=== PATIENT | female | born 2000 | race Hispanic/Latino ===

== ENCOUNTER 2020-01-13 11:31 | Outpatient (CLI) | payer OTHER, SELFPAY ==
--- NOTE | ~2020-01-13 | US_ITS ---
EXAMINATION: US OB <=14 wk fetus w TV DATE: 01/13/2020 12:30 INDICATION: Bleeding during first trimester TECHNIQUE: Real-time pelvic transabdominal and transvaginal ultrasound was performed. COMPARISON: None. FINDINGS: The uterus measures 7.7 x 5.2 x 3.7 cm. No intrauterine gestational sac is identified. The endometrial thickness measures 7 mm. The right ovary measures 1.3 x 1.4 x 1.8 cm. The left ovary steven ures 2.1 x 2.2 x 2.0 cm. There is no free fluid in the pelvis. IMPRESSION: 1. of unknown location. Although no intrauterine gestational sac is seen, this may be due t o early gestation. If the patient is clinically stable, recommend followup with serial beta-hCG and u ltrasound. Reviewed, dictated and finalized at location B. IMPRESSION: 1. of unknown location. Although no intrauterine gestational sac is s een, this may be due to early gestation. If the patient is clinically stable, r ecommend followup with serial beta-hCG and ultrasound.
== END 2020-01-13 11:32 | disposition home or self-care (01) ==
PROVIDERS: PCP Registered Nurse; Visit Provider Nurse Practitioner
DX: O26.859 Spotting complicating pregnancy, unspecified trimester (principal); Z3A.00 Weeks of gestation of pregnancy not specified
CPT/HCPCS: 76801; 76817

== ENCOUNTER 2020-01-17 07:52 | Outpatient (RCR) | payer OTHER, SELFPAY ==
[2020-01-17 08:40] LABS: Beta HCG Quantitative 125.17 mIU/ML
== END 2020-04-12 23:59 | disposition home or self-care (01) ==
LOC: ANHLAB 07:52
PROVIDERS: PCP Registered Nurse; Visit Provider Nurse Practitioner
DX: O26.851 Spotting complicating pregnancy, first trimester (principal); Z3A.00 Weeks of gestation of pregnancy not specified
CPT/HCPCS: 36415; 84702; 86900; 86901

== ENCOUNTER 2020-02-29 09:17 | Outpatient (RCR) | payer OTHER, SELFPAY ==
[2020-01-23 14:36] LABS: Beta HCG Quantitative 20.45 mIU/ML
[2020-02-02 18:04] LABS: Beta HCG Quantitative < 2.39 mIU/ML
== END 2020-04-22 23:59 | disposition home or self-care (01) ==
LOC: ANHLAB 09:17
PROVIDERS: PCP Registered Nurse; Visit Provider Nurse Practitioner
DX: O03.9 Complete or unspecified spontaneous abortion without complication (principal)
CPT/HCPCS: 36415; 84702

== ENCOUNTER 2020-03-13 15:37 | Outpatient (CLI) | payer OTHER, SELFPAY ==
--- NOTE | ~2020-03-13 | US_ITS ---
EXAMINATION: US OB <= 14 weeks fetus DATE: 03/13/2020 16:36 INDICATION: Encounter for screening. TECHNIQUE: Real-time transabdominal obstetric ultrasound. FINDINGS: Comparison to 01/13/2020 The uterus measures 10.5 x 5.1 x 6 cm. There is an intrauterine gestational sac, with pole iden tified. The crown rump length measures 1.78 cm, which correlates with a estimated gestational age of 8 weeks 2 days. heart tones are identified measuring 167 BPM. The ovaries are within normal limits. Right ovary measures 1.8 x 1.6 x 2.3 cm. Left ovary measures 1.9 x 1.2 x 1.6 cm. IMPRESSION: 1. SL IUP with an EGA of 8 weeks, 2 days (EDC by current ultrasound of 10/21/2020). Reviewed, dictated and finalized at location A. IMPRESSION: 1. SL IUP with an EGA of 8 weeks, 2 days (EDC by current ultrasound of 10/21/19).
== END 2020-03-13 15:38 | disposition home or self-care (01) ==
PROVIDERS: PCP Registered Nurse; Visit Provider Obstetrics & Gynecology Gynecology
DX: O26.21 Pregnancy care for patient with recurrent pregnancy loss, first trimester (principal); Z36.87 Encounter for antenatal screening for uncertain dates; Z3A.08 8 weeks gestation of pregnancy
CPT/HCPCS: 76801

== ENCOUNTER 2020-04-10 15:33 | Outpatient (CLI) | payer OTHER, SELFPAY ==
[2020-04-10 16:17] LABS: Basophils Percent Auto 0.2 % (0.2-1.2); Eosinophils Absolute Auto 0.4 K/mm3 (0-0.3); Eosinophils Percent Auto 4.1 % (0-4.4); Hematocrit 34.9 % (37.0-47.0); Hemoglobin 11.9 g/dL (12.0-15.0); Immature Granulocyte Absolute 0.03 K/mm3 (0.00-0.031); Immature Granulocyte Percent A 0.3 % (0-0.5); Lymphocytes Percent Auto 19.6 % (18.3-44.2); Mean Corpuscular HGB Conc 34.1 g/dl (32-36); Mean Corpuscular Hemoglobin 27.3 pg (26-34); Mean Platelet Volume 10.7 fl (7.4-10.4); Monocytes Absolute Auto 0.6 K/mm3 (0.1-0.6); Monocytes Percent Auto 7.1 % (2.6-8.5); Neutrophils Percent Auto 68.7 % (45.5-73.1); Platelet Count Result 330 k/mm3 (150-375); Red Blood Count 4.36 M/mm3 (4.2-5.4); White Blood Count 8.7 K/mm3 (4.5-10.0)
[2020-04-10 17:00] LABS: Rubella IgG Antibody 78.4 IU/ML
[2020-04-10 17:09] LABS: Hemoglobin A1C 5.3 % (<5.7)
[2020-04-10 17:16] LABS: HIV 1/2 Ab P24 Ag Result Negative (Negative); Hepatitis B Surface Anti Res Negative
[2020-04-10 18:02] LABS: Vitamin D 25 Hydroxy 27.5 ng/mL
[2020-04-11 07:49] LABS: Rapid Plasma Reagin Non-Reactive (NonReactive)
== END 2020-04-10 15:34 | disposition home or self-care (01) ==
PROVIDERS: PCP Registered Nurse; Visit Provider Obstetrics & Gynecology Gynecology
DX: Z36.9 Encounter for antenatal screening, unspecified (principal)
CPT/HCPCS: 36415; 82306; 83036; 85025; 85461; 86592; 86703; 86706; 86762; G0432

== ENCOUNTER 2020-05-16 15:41 | Emergency (ER) | payer OTHER, SELFPAY ==
[2020-05-16 15:45] VITALS: BP 138/64; PULSE 97; RESP 18; TEMP 36.8; O2SAT 97
--- NOTE | 2020-05-16 15:48 | ECG_ITS ---
Measurements Intervals [place] Rate: 103 P: -23 KS: 148 QRS: 6 QRSD: 86 T: -17 QT: 311 QTc: 407 Interpretive Statements SINUS TACHYCARDIA BORDERLINE ST-T WAVE ABNORMALITY- ANTEROLAT/INF LEADS BASELINE ARTIFACT- II, III, AVR, AVL, AVF, V1-V3 BORDERLINE ECG Electronically Signed On 05-16-2020 16:05:10 CDT by Cristi Leo D.O.
[2020-05-16 16:03] LABS: Basophils Percent Auto 0.2 % (0.2-1.2); Eosinophils Absolute Auto 0.3 K/mm3 (0-0.3); Eosinophils Percent Auto 2.8 % (0-4.4); Hematocrit 33.7 % (37.0-47.0); Hemoglobin 11.4 g/dL (12.0-15.0); Immature Granulocyte Absolute 0.04 K/mm3 (0.00-0.031); Immature Granulocyte Percent A 0.4 % (0-0.5); Lymphocytes Absolute Auto 1.84 K/mm3 (0.9-3.2); Lymphocytes Percent Auto 17.2 % (18.3-44.2); Mean Corpuscular HGB Conc 33.8 g/dl (32-36); Mean Corpuscular Hemoglobin 27.4 pg (26-34); Mean Platelet Volume 11.1 fl (7.4-10.4); Monocytes Absolute Auto 0.5 K/mm3 (0.1-0.6); Monocytes Percent Auto 4.6 % (2.6-8.5); Neutrophils Percent Auto 74.8 % (45.5-73.1); Platelet Count Result 285 k/mm3 (150-375); Red Blood Count 4.16 M/mm3 (4.2-5.4); Red Cell Distribution Width 13.1 % (11.5-14.5); White Blood Count 10.7 K/mm3 (4.5-10.0)
[2020-05-16 16:13] LABS: Prothrombin Time 12.8 Seconds (11.1-14.7)
[2020-05-16 16:14] LABS: Partial Thromboplastin Time 28.7 SECONDS (22.3-36.8)
[2020-05-16 16:19] LABS: Anion Gap 11.7 mmol/L (7-16); Blood Urea Nitrogen 7 mg/dL (7-17); Calcium 9.1 mg/dL (8.4-10.2); Carbon Dioxide 22 mmol/L (22-30); Chloride 106 mmol/L (98-107); Estimated CRCL calculation 193 ml/min; Estimated Glomerular Filt Rate > 60; Glucose 82 mg/dL (65-105); Potassium 3.7 mmol/L (3.4-5.0); Sodium 136 mmol/L (137-145)
--- NOTE | 2020-05-16 16:42 | ED.ARRPALP ---
HPI - Arrhythmia/Palpitations General Chief Complaint: Arrhythmia/Palpitations Stated Complaint: blood in emesis, rapid HR, 17 weeks preg Time Seen by Provider: 05/16/20 16:36 History of Present Illness HPI narrative: Patient presents with her boyfriend for throwing up with blood. She is 17 weeks . She has been vomiting for 3 days. This is her first . She has Reglan at home which has not had. She has a history of UTI. She has been going more frequently. And she had some blood in her vomit. She also complained to her doctor that her heart rate was too fast. She has no long-term medical problem. She has not had any surgeries. 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 complaint: rapid heart beat Duration: intermittent Severity: mild Associated symptoms: nausea and vomiting Related Data Home Medications Medication Instructions Recorded Confirmed No Home Medications 05/16/20 05/16/20 Allergies Allergy/AdvReac Type Severity Reaction Status Date / Time No Known Allergies Allergy Verified 05/16/20 15:49 Review of Systems Review of Systems: Narrative: CONSTITUTIONAL: Denies fever, chills, or sweats. EYES: Denies visual changes, redness, or discharge. ENT: Denies rhinorrhea, congestion, sore throat, or otalgia. CARDIOVASCULAR: Denies chest pain. RESPIRATORY: Denies cough or dyspnea. GASTROINTESTINAL: Denies abdominal pain, but has had nausea, vomiting. GENITOURINARY: Denies dysuria or hematuria. Has had urinary frequency MUSCULOSKELETAL: Denies back pain, joint pain, or myalgia. NEUROLOGIC: Denies headache, numbness, or weakness. All systems reviewed & are unremarkable except as noted in HPI and below PMFSH Surgical History Surgical History No pertinent past surgical history Social History Social History (Updated 05/16/20 @ 16:46 by Dionne Alvarez MD) Smoking status: Never smoker Alcohol intake: never Substance use: never Gender identity (if verbalized by the patient): Female Exam Narrative: Exam Narrative: GENERAL: Well-appearing, well-nourished, and in no acute distress. HEAD: Normocephalic, atraumatic. EYES: PERRLA and EOMI. ENT: Nares clear, no rhinorrhea or epistaxis. Mucous membranes moist. NECK: Supple. CHEST: Clear to auscultation. No respiratory distress. HEART: Regular rate and rhythm. No murmur heard. Normal peripheral pulses. ABDOMEN: Soft, nontender, nondistended, normal active bowel sounds. EXTREMITIES: Normal range of motion. No edema. SKIN: Warm, dry, no rash. Cystic acne on her face and back. NEURO: No focal deficits. Alert and oriented x3. PSYCH: Normal mood and affect. Course Reevaluation(s) Reevaluation #1: Checked on the patient and she is feeling much better, her IV fluids are almost finished, he has no more nausea or vomiting. She can be discharged with a prescription for Zofran. Date: 05/16/20 Time: 17:57 Vital Signs Vital signs: Vital Signs Temperature 98.3 F 05/16/20 15:45 Pulse Rate 97 05/16/20 15:45 Respiratory Rate 18 05/16/20 15:45 Blood Pressure 138/64 05/16/20 15:45 Pulse Oximetry 97 05/16/20 15:45 Temperature 98.3 F 05/16/20 15:45 Pulse Rate 90 05/16/20 16:57 Respiratory Rate 20 05/16/20 16:57 Blood Pressure 122/75 05/16/20 16:57 Pulse Oximetry 100 05/16/20 16:57 MDM - Arrhythmia/Palpitations Differential Diagnosis Differential diagnosis: Likely palpitations and anxiety Medical Records Attestation: I reviewed the patient's medical records. Lab Data Attestation: I reviewed the patient's lab results. Result diagrams: 05/16/20 15:53 05/16/20 15:53 Labs: Lab Results 05/16/20 05/16/20 05/16/20 Range/Units 15:53 15:53 15:53 WBC 10.7 H (4.5-10.0) K/mm3 RBC 4.16 L (4.2-5.4) M/mm3 Hgb 11.4 L (12.0-15.0) g/dL Hct 33.7 L (37.0-47.0) % MCV 81
[2020-05-16 16:57] VITALS: BP 122/75; PULSE 90; RESP 20; O2SAT 100
[2020-05-16] MEDS: ONDANSETRON INJ 4 MG/2 ML VIAL IV PUSH (17:02)
[2020-05-16] MEDS: DEXTROSE 5%/0.9% SOD CHL 1,000 ML 999 ML IV CONT (17:02)
[2020-05-16] MEDS: FAMOTIDINE 20 MG/2 ML VIAL IV PUSH (17:03)
[2020-05-16 18:25] LABS: Add Urine Microscopic? YES; Appearance Urine Clear (Clear); Bacteria Urine Trace /hpf; Bilirubin Urine Negative (Negative); Blood Urine Negative (Negative); Color Urine Yellow (Yellow); Glucose Urine UA Negative (Negative); Ketones Urine Trace mg/dL (Negative); Leukocyte Esterase Ur 3+ LEU/UL (Negative); Mucus Urine Rare /lpf; Nitrate Urine Negative (Negative); Protein Urine Negative (Negative); RBC Urine 0-2 /hpf (0-2); Specific Grav Ur 1.017 (1.001-1.035); Squamous Epithelial Cell Urine Many /hpf (Few); Urobilinogen Urine Negative mg/dL (<2.0)
[2020-05-16 19:28] VITALS: BP 127/84; PULSE 86; RESP 18; TEMP 36.7; O2SAT 99
== END 2020-05-16 19:29 | disposition home or self-care (01) ==
PROVIDERS: Emergency Provider Emergency Medicine
DX: O21.0 Mild hyperemesis gravidarum (principal); Z3A.17 17 weeks gestation of pregnancy; R00.0 Tachycardia, unspecified
CPT/HCPCS: 36415; 80048; 81001; 85025; 85610; 85730; 87077; 87086; 87088; 93005; 96361; 96374; 96375; 99284; J2405; J7042

== ENCOUNTER 2020-05-22 13:09 | Outpatient (CLI) | payer OTHER, SELFPAY ==
--- NOTE | ~2020-05-22 | US_ITS ---
EXAMINATION: US OB /maternal detail DATE: 05/22/2020 14:13 INDICATION: Second trimester anatomic survey TECHNIQUE: Real-time ultrasound of the pelvis was performed. COMPARISON: None. FINDINGS: There is a single living fetus in vertex presentation. The placenta is posterior. heart rate is 149 beats per minute (bpm). cardiac activity and movement are noted. The amniotic fluid index is subjectively normal. The following anatomy was identified as normal: 4 chamber heart 3 vessel cord cord insertion kidneys urinary bladder stomach spine diaphragm ventricles cisterna magna cerebellum The following biometric data were obtained: Biparietal diameter (BPD): 4.4 cm; head circumference (HC): 16.4 cm; abdominal circumference (AC): 12 .7 cm; femur length (FL): 2.7 cm. The head circumference to abdominal circumference ratio is greater than two standard deviations above the mean. These measurements are otherwise concordant. Estimated weight is 240 g +/- 36 g, which correlates with the 55th percentile when 10/21/2020 is used as estimated date of delivery. As single measurements, these parameters are each equal to the following estimated gestational ages w ith ranges of +/- 2 standard deviations: BPD: 19 weeks 3 days +/- 1 weeks 5 days. HC: 19 weeks 1 days +/- 1 weeks 3 days. AC: 18 weeks 2 days +/- 2 weeks 0 days. FL: 18 weeks 2 days +/- 1 weeks 6 days. estimated gestational age based solely on measurements from this exam is 18 weeks 6 days +/- 1 weeks 2 days. IMPRESSION: 1. Single living fetus in vertex presentation. 2. Estimated weight is 240 g +/- 36 g, which correlates with the 55th percentile when 10/21/2020 is used as estimated date of delivery. 3. Head circumference to abdominal circumference ratio greater than two standard deviations above the mean. Reviewed, dictated and finalized at location A. IMPRESSION: 1. Single living fetus in vertex presentation. 2. Estimated weight is 240 g +/- 36 g, which correlates with the 55th per centile when 10/21/2020 is used as estimated date of delivery. 3. Head circumference to abdominal circumference ratio greater than two standar d deviations above the mean.
== END 2020-05-22 13:10 | disposition home or self-care (01) ==
PROVIDERS: Visit Provider Obstetrics & Gynecology Gynecology
DX: Z36.9 Encounter for antenatal screening, unspecified (principal); Z3A.18 18 weeks gestation of pregnancy
CPT/HCPCS: 76805

== ENCOUNTER 2020-08-07 17:42 | Emergency (ER) | payer OTHER, SELFPAY ==
[2020-08-07 17:58] VITALS: BP 142/79; PULSE 98; RESP 16; TEMP 37; O2SAT 99
--- NOTE | 2020-08-07 18:17 | ED.EXTPRO ---
HPI - Extremity Problem General Chief complaint: Extremity Problem,Nontraumatic Stated complaint: right wrist pain Time Seen by Provider: 08/07/20 18:07 Source: patient and RN notes reviewed Mode of arrival: ambulatory Limitations: no limitations History of Present Illness HPI Narrative: 20-year-old 7-month female presents with complaints right wrist tenderness for the past month. 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 No known injuries. No treatment. Denies numbness, tingling, or weakness. No radiating pain. No immobility, suspected foreign body, or abuse. Exacerbating factors consist of movement. The relieving factor is rest. The dominant hand is the LEFT hand. Denies fever or chills. Remains active. The patient reports she have not been diagnosed with COVID-19. The patient reports she is not waiting for the results of a COVID-19 lab test. The patient reports she do not have fever, chills, weakness, or fatigue. The patient reports she do not have a new or worsening cough or shortness of breath. Denies chest pain. The patient reports she do not have any rhinorrhea, congestion, sore throat, loss of taste, nausea, vomiting, abdominal pain, and diarrhea. Tolerating po intake well. Denies recent traveling. Denies concerns for COVID-19 or exposures been home with limited outdoor exposure except for essential household needs, work, and return home. At this time, patient is not suspected of having COVID-19. Some parts of this dictation were generated by voice recognition software and may contain typographical and/or grammatical inaccuracies. Related Data Home Medications Medication Instructions Recorded Confirmed [id number] 1 pkg PO DAILY 08/07/20 08/07/20 [Chewable ] Allergies Allergy/AdvReac Type Severity Reaction Status Date / Time No Known Allergies Allergy Verified 08/07/20 18:03 Review of Systems Review of Systems: Narrative: CONSTITUTIONAL: Denies fever, chills, sweats. EYES: Denies visual changes, redness, discharge. ENT: Denies rhinorrhea, congestion, sore throat, otalgia. CARDIOVASCULAR: Denies chest pain, palpitations, edema. RESPIRATORY: Denies dyspnea, wheezing, cough. GASTROINTESTINAL: Denies abdominal pain, nausea, vomiting, diarrhea. Normal movement of baby. GENITOURINARY: Denies dysuria, hematuria, abnormal discharge SKIN: Denies rash or itching. MUSCULOSKELETAL: Denies acute back pain or myalgia. Complains of right wrist pain. NEUROLOGIC: Denies numbness or focal weakness. PSYCHIATRIC: Denies anxiety or depression. Allergic/Immunologic: Comments: At time of signature, agree with nurse past medical, surgical, social, and family history. There is no relevant family history pertinent to the presenting complaint. [facility] Past Medical History Medical History (Updated 08/08/20 @ 00:00 by Karen Bruno) Cystic acne Hx of migraines Obese Surgical History Surgical History No pertinent past surgical history Family History Family History (Updated 08/07/20 @ 18:22 by DINA Murphy) Father , Related to her stroke Cerebrovascular accident Mother Alive and well Social History Social History (Updated 08/07/20 @ 18:23 by DINA Murphy) Smoking status: Never smoker Tobacco type: cigarettes Second hand tobacco smoke exposure: No Alcohol intake: never Substance use: never Living arrangements: with family Occupation/Education: occupation 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 There is no relevant family history pertinent to the pre
[2020-08-07 18:40] VITALS: BP 136/68
== END 2020-08-07 18:42 | disposition home or self-care (01) ==
PROVIDERS: Emergency Provider Nurse Practitioner Family
DX: M77.8 Other enthesopathies, not elsewhere classified (principal); E66.9 Obesity, unspecified; Z68.35 Body mass index [BMI] 35.0-35.9, adult
CPT/HCPCS: 99212; G0463

== ENCOUNTER 2020-10-13 06:01 | Outpatient (CLI) | payer OTHER, SELFPAY ==
[2020-10-13 07:09] VITALS: BP 145/83; PULSE 103
--- NOTE | 2020-10-13 07:13 | OBADM ---
This patient, Marium Hernandez, admitted to the OB room Labor/Delivery/Recovery 105 for observation. Patient/family oriented to hospital policies and general routines including ID bracelet, bed and alarms, visiting hours, pain management, procedures, bathroom and other care routines, personal items, smoking policy, room service/diet, and visiting hours. Patient/Family are encouraged to report perceived risks to care and to ask questions if they do not understand what they are told or what they should do.
--- NOTE | 2020-10-13 07:13 | PC.NURSE ---
0645 ROM+ NEGATIVE X2 DESPITE CONVINCING STORY...INTERCOURSE YESTERDAY...SVE /-1 AND SOFT...SCHEDULED FOR INDUCTION 10/15
== END 2020-10-13 07:10 | disposition home or self-care (01) ==
LOC: ANHOBOP 06:55 → ANHLDR 07:19
PROVIDERS: Visit Provider Obstetrics & Gynecology Gynecology
DX: O42.90 Premature rupture of membranes, unspecified as to length of time between rupture and onset of labor, unspecified weeks of gestation (principal); Z3A.00 Weeks of gestation of pregnancy not specified
CPT/HCPCS: 59025; 84112; 99199

== ENCOUNTER 2020-10-13 21:33 | Inpatient (IN) | payer OTHER, SELFPAY ==
[2020-10-13 21:46] VITALS: BP 143/84; PULSE 101
[2020-10-13 22:01] VITALS: BP 143/84; PULSE 92
[2020-10-13 22:12] VITALS: BMI 38.3
--- NOTE | 2020-10-13 22:14 | LDADM ---
This patient, Marium Hernandez, was admitted to Labor/Delivery/Recovery 106 on 10/13/20 at 21:33. Plans for labor, pain management and were discussed with patient. Patient/family oriented to hospital policies and general routines including ID bracelet, bed and alarms, visiting hours, pain management, procedures, bathroom and other care routines, personal items, smoking policy, room service/diet and guest tray routines, security routines, and visiting hours. Patient/Family are encouraged to report perceived risks to care and to ask questions if they do not understand what they are told or what they should do. See OBIX for further documentation.
[2020-10-13] MEDS: LACTATED RINGERS 1,000 ML 125 ML IV CONT (22:57)
[2020-10-13] MEDS: AMPICILLIN 2 GM/NS 100 ML 2 GM/100 ML BAG IVPB (22:58)
[2020-10-13 23:09] LABS: Basophils Percent Auto 0.2 % (0.2-1.2); Eosinophils Absolute Auto 0.2 K/mm3 (0-0.3); Eosinophils Percent Auto 1.3 % (0-4.4); Hematocrit 32.8 % (37.0-47.0); Hemoglobin 10.8 g/dL (12.0-15.0); Immature Granulocyte Absolute 0.09 K/mm3 (0.00-0.031); Immature Granulocyte Percent A 0.7 % (0-0.5); Lymphocytes Absolute Auto 1.49 K/mm3 (0.9-3.2); Lymphocytes Percent Auto 11.1 % (18.3-44.2); Mean Corpuscular HGB Conc 32.9 g/dl (32-36); Mean Corpuscular Hemoglobin 26.5 pg (26-34); Mean Corpuscular Volume 80.4 fl (80-100); Monocytes Absolute Auto 0.8 K/mm3 (0.1-0.6); Monocytes Percent Auto 5.6 % (2.6-8.5); Neutrophils Absolute Auto 10.9 K/mm3 (1.3-6.7); Neutrophils Percent Auto 81.1 % (45.5-73.1); Platelet Count Result 246 k/mm3 (150-375); Red Blood Count 4.08 M/mm3 (4.2-5.4); White Blood Count 13.4 K/mm3 (4.5-10.0)
[2020-10-13 23:34] VITALS: BP 139/81; PULSE 85; TEMP 36.5
[2020-10-13 23:46] VITALS: BP 138/83; PULSE 89
[2020-10-14] VITALS (218 sets, daily range): BP systolic 94–163; BP diastolic 53–96; PULSE 78–126; RESP 14–20; TEMP 36.4–38; O2SAT 95–100
[2020-10-14] MEDS: LACTATED RINGERS 1,000 ML 125 ML IV CONT (02:14)
--- NOTE | 2020-10-14 02:15 | WPDANESEPP ---
Anes - Eval Pre Procedure Procedure: labor epidural Date/Time: 10/14/20 02:15 Surgeon: aníbal Preop Diagnosis: pain during labor Pre Op Diagnosis: CTX, leaking Patient Data Age: 20 Gender: F Height: 1.6 m Weight: 98.2 kg Last Vital Signs Temp 36.7 C 10/14/20 01:25 Pulse 83 10/14/20 02:01 BP 144/84 H 10/14/20 02:01 Pulse Ox 100 10/14/20 02:14 Allergies Allergy/AdvReac Type Severity Reaction Status Date / Time No Known Allergies Allergy Verified 08/07/20 18:03 Home Medications Medication Instructions Recorded Confirmed Type PNV cmb#95-ferrous fumarate-FA 1 tablet PO DAILY 09/29/20 09/29/20 History [] ergocalciferol (vitamin D2) 1,250 mcg PO WEEKLY 09/29/20 09/29/20 History [Vitamin D2] ondansetron 4 mg PO Q8H PRN 09/29/20 09/29/20 History valacyclovir [Valtrex] 500 mg PO DAILY 09/29/20 09/29/20 History Laboratory Tests 10/13/20 10/13/20 10/13/20 22:54 22:54 22:54 WBC 13.4 K/mm3 H K/mm3 (4.5-10.0) RBC 4.08 M/mm3 L M/mm3 (4.2-5.4) Hgb 10.8 g/dL L g/dL (12.0-15.0) Hct 32.8 % L % (37.0-47.0) MCV 80.4 fl fl (80-100) MCH 26.5 pg pg (26-34) MCHC 32.9 g/dl g/dl (32-36) RDW 14.0 % % (11.5-14.5) Plt Count 246 k/mm3 k/mm3 (150-375) MPV 12.0 fl H fl (7.4-10.4) Immature Gran % (Auto) 0.7 % H % (0-0.5) Neut % (Auto) 81.1 % H % (45.5-73.1) Lymph % (Auto) 11.1 % L % (18.3-44.2) [place] % (Auto) 5.6 % % (2.6-8.5) Eos % (Auto) 1.3 % % (0-4.4) Baso % (Auto) 0.2 % % (0.2-1.2) Lymph # (Auto) 1.49 K/mm3 K/mm3 (0.9-3.2) [place] # (Auto) 0.8 K/mm3 H K/mm3 (0.1-0.6) Eos # (Auto) 0.2 K/mm3 K/mm3 (0-0.3) Baso # (Auto) 0.0 K/mm3 K/mm3 (0.0-0.1) Abs Immat Gran (auto) 0.09 K/mm3 H K/mm3 (0.00-0.031) Absolute Neuts (auto) 10.9 K/mm3 H K/mm3 (1.3-6.7) Absolute Nucleated RBC 0.0 K/mm3 K/mm3 (0.0-0.012) Nucleated RBC % 0.0 % % (0.0-0.2) RPR Pending Blood Type O Positive Antibody Screen Negative Patient hx anesthesia problems: none Family hx anesthesia problems: none PMFSH Past Medical History Medical History (Updated 08/08/20 @ 00:00 by Karen Bruno) Cystic acne Hx of migraines Obese Surgical History Surgical History No pertinent past surgical history Family History Family History (Updated 09/29/20 @ 15:34 by Stella Fonseca RN) Father , Related to her stroke Cerebrovascular accident Hypertension Diabetes mellitus Mother Alive and well Social History Social History (Updated 08/07/20 @ 18:23 by DINA Murphy) Smoking status: Never smoker Tobacco type: cigarettes Second hand tobacco smoke exposure: No Alcohol intake: never Substance use: never 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
[2020-10-14] MEDS: AMPICILLIN 1 GM/NS 50 ML 1 GM/50 ML BAG IVPB ×3 (02:54→11:00)
[2020-10-14] MEDS: OXYTOCIN 30 UNITS/NS 500 ML 30 UNITS/500 ML BAG IV CONT (06:22)
--- NOTE | 2020-10-14 14:44 | WPDOBADMIT ---
Obstetrics - Admit Note Admission Note: complete and pushing record reviewed. No pertinent additions to the history and/or any subsequent changes in the physical findings that are not consistent with the expected course of the were found. Additions to the history and/or subsequent changes in the physical findings follow. None.
--- NOTE | 2020-10-14 14:45 | PM.OBDSVD ---
DS: Admitting Diagnosis Admitting Diagnosis Admitting Diagnosis: DS: Discharge Diagnosis Discharge Diagnosis (1) (normal spontaneous vaginal delivery): Code(s): O80 - Encounter for full-term uncomplicated delivery Status: Acute OB - DS: Summary OB Procedures : Ultrasound OB Procedures Intrapartum: Spontaneous Vag Delivery OB Procedures: : None Time Spent with Patient Time attestation: Total time spent providing and/or coordinating discharge services: DS: Data Data Completed and Pending Labs on day of discharge: Labs from last 24 hours 10/13/20 10/13/20 10/13/20 22:54 22:54 22:54 WBC 13.4 H RBC 4.08 L Hgb 10.8 L Hct 32.8 L MCV 80.4 MCH 26.5 MCHC 32.9 RDW 14.0 Plt Count 246 MPV 12.0 H Immature Gran % (Auto) 0.7 H Neut % (Auto) 81.1 H Lymph % (Auto) 11.1 L [place] % (Auto) 5.6 Eos % (Auto) 1.3 Baso % (Auto) 0.2 Lymph # (Auto) 1.49 [place] # (Auto) 0.8 H Eos # (Auto) 0.2 Baso # (Auto) 0.0 Abs Immat Gran (auto) 0.09 H Absolute Neuts (auto) 10.9 H Absolute Nucleated RBC 0.0 Nucleated RBC % 0.0 RPR Pending Blood Type O Positive Antibody Screen Negative Discharge Plan Discharge Attending physician on discharge: Flor Donnelly Consulting providers: Ministerio Lemus Discharging Clinician: Flor Donnelly Anticipated Discharge Date/Time: 10/16/20 07:49 Patient Disposition: Home, Self-Care Activity: may shower and pelvic rest Diet: regular Discharge Instructions: Education: Mom and Baby Guide, discharge video handout, and Preeclampsia Handout Given to: Mother Follow-Up: Call your delivering provider's office for an appointment to be seen in: 6 Weeks Mom and baby [facility] the follow-up appointment. Appointment Date/Time: October 17, 2020 at 11:00 am What to expect at your follow-up visit: Physical Assessment Call [phone] if you are unable to keep your appointment time. BREAST CARE: * Wear a snug supportive bra. * For engorgement discomfort: Breast Feeding: * Apply warm moist washcloths * Express milk as needed to relieve engorgement * Wear loose clothing * For sore nipples: * Identify correct latch-on * Apply warm moist washcloths before and after nursing * Air dry nipples after nursing * May apply Lansinoh cream to nipples EPISIOTOMY/PERINEAL CARE: * Until bleeding stops, use your skye bottle after urinating * Change your pad frequently throughout the day * You may take sitz baths several times a day (fill your bathtub with warm water and soak for 20 minutes.) Do NOT bathe in the water * No tub baths until seen by your physician - You may shower ACTIVITY: * Rest as much as possible. * Do not exercise or lift anything heavier than your baby (such as laundry or other children.) * Avoid stairs or driving as much as possible. * Do not put anything into the vagina. No douching, tampons, or sexual activity until seen by physician. NOTIFY PHYSICIAN IF YOU HAVE ANY QUESTIONS OR IF ANY OF THE FOLLOWING SYMPTOMS OCCUR: * If your episiotomy or incision becomes red, swollen, or more painful than what you have experienced in the hospital. * If your vaginal bleeding becomes foul smelling. * If your vaginal bleeding becomes more heavy than a period or if your bleeding changes from pink to bright red. However, you may pass an occasional walnut-sized clot once or twice for the first week . * If you experience a sharp, shooting pain in you calves. * If you discover a hard, reddened area on your breast or if you experience flu-like symptoms. DIET: * Eat regular, well-balanced meals. * Drink plenty of fluids daily. If , drink to thirst. Stand Alone Forms: General Discharge Information Follow-up/[facility]erra
--- NOTE | 2020-10-14 14:46 | P.PCNOB_ITS ---
OB - Delivery Note Procedure Delivery date: 10/14/20 Procedure: events: Labor Augmentation Intrapartal events: Chorioamnionitis Delivery augmentation: pitocin Delivery monitor: external FHT and external uterine Route of delivery: Laceration Description: Perineal - 1st Degree Delivery repair: vicryl Specimen: Yes Quantitative Blood Loss (ml): 100 Anesthesia type: Epidural Disposition: floor [place] Baby Date of : 10/14/20 Time of : 14:31 Weeks of gestation at delivery: 39 Infant gender: Female Weight (pounds): 6 Weight (ounces): 2 presentation: vertex position: Left Occiput Anterior cord vessel description: 3 Vessels score one minute: 9 score five minutes: 9
[2020-10-14] MEDS: OXYTOCIN 30 UNITS/NS 500 ML 30 UNITS/500 ML BAG 125 UNITS IV CONT (15:05)
[2020-10-14] MEDS: WITCH HAZEL 40 PADS 1 PAD TOPICAL (16:45)
[2020-10-14] MEDS: BENZOCAINE 20% AER SPR (*SP) 56 GM CAN 1 SPRAY TOPICAL (16:45)
--- NOTE | 2020-10-14 17:02 | PC.NURSE ---
Patient transferred to post room #288 via wheelchair. Support person present. Oriented to unit, room, information board, rooming in, admission packet and security measures. Patient verbalizes understanding.
[2020-10-15 04:26] LABS: Hematocrit 26.9 % (37.0-47.0)
[2020-10-15] MEDS: IBUPROFEN 600 MG TABLET PO ×3 (05:38→23:56)
[2020-10-15 07:40] VITALS: BP 116/59; PULSE 104; RESP 18; TEMP 37; O2SAT 100
--- NOTE | 2020-10-15 08:43 | PM.OBPNVD ---
OB - PN: Subj Subjective Date/time seen: 10/15/20 08:43 Patient comments: no complaints and pain well controlled baby status: doing well OB - PN: Obj Data Labs CBC & Chem 7: 10/15/20 04:02 Labs: Laboratory Results - last 24 hr 10/15/20 04:02 Hgb 9.0 L Hct 26.9 L OB - PN A/P Plan day: 1 Plan: routine care Time Spent With Patient Time: Total time spent is greater than 50% in coordination of care (as documented) at patient's floor/unit and/or counseling patient: Exam : Bimanual exam- vagina & uterus: other (Uterus firm, nt @U)
[2020-10-15] MEDS: valACYclovir HCL 500 MG TABLET PO (09:38)
[2020-10-15] MEDS: POLYSACCHARIDE IRON COMPLEX 150 MG CAPSULE PO ×2 (09:38→15:16)
[2020-10-15] MEDS: DOCUSATE SODIUM 100 MG CAPSULE PO ×2 (09:38→15:15)
[2020-10-15] MEDS: MULTIVIT/MIN/PREN/FOL AC/IRON TABLET 1 TAB PO (09:38)
[2020-10-15 13:02] LABS: Rapid Plasma Reagin Non-Reactive (NonReactive)
--- NOTE | 2020-10-15 13:08 | WPDANLDPN2 ---
Anes-Prog Note L&D Date/Time: 10/15/20 13:08 Comfortable throughout: labor and delivery Neuraxial method: epidural Epidural/Spinal procedure site: clean & non-tender Neuro status: Neuro function grossly intact. Cardiovascular status: normal Respiratory status: normal Airway patency: baseline Mental status: baseline Post-Op hydration status: normal Vital Signs: Last Vital Signs Temp 37.0 C 10/15/20 07:40 Pulse 104 H 10/15/20 07:40 Resp 18 10/15/20 07:40 BP 116/59 L 10/15/20 07:40 Pulse Ox 100 10/15/20 07:40 Pain score (VAS): 0 I/O: Intake & Output 10/14/20 10/15/20 10/15/20 23:59 07:59 15:59 Output Total 68 Balance -68 Post-procedural complaints: none Patient feedback: Patient satisfied with anesthetic care.
--- NOTE | 2020-10-15 14:51 | PC.NURSE ---
0955 note; nurse assisted with breast feeding; baby gently awakened and easily showed feeding cues; Mother used football position; several attempts required to latch, but baby able to latch and maintain latch, demonstrating rhythmic sucking, effective breast feeding; mother shown how to gently adjust baby to deeper latch, and how to assess for deep latch. Reviewed with parents, frequency and duration of feedings, waking infant if necessary for feedings. Reviewed positioning, alignment, use of c-hold and nose to nipple latch on technique. FOB attentive and engaged in the teaching, and helping with feeding. Parents encouraged to call for nurse assistance with each feeding until they feel comfortable on their own. They voiced understanding of all information shared.
--- NOTE | 2020-10-15 15:11 | PC.NURSE ---
Nurse again assisted mother with breast feeding; baby awakened at 4 hours since last feeding; mother did not try to wake ; reviewed again importance of q2-3h feedings, waking if necessary. baby initially sleepy; did awaken to nurse; reviewed with mother positioning, alignment, use of U-hold in football position, and importance of patiently waiting for infant to open her mouth wide to latch. mother reports comfortable latch and sucking. shown again how to adjust infant to deeper latch while on the breast. Mother awakened FOB to assist with feeding. Parents doing well at working together during breast feedings
[2020-10-15 20:25] VITALS: BP 130/79; PULSE 93; RESP 14; TEMP 36.4; O2SAT 100
--- NOTE | 2020-10-16 07:48 | PM.OBPNVD ---
OB - PN: Subj Subjective Date/time seen: 10/16/20 07:48 Patient comments: no complaints and pain well controlled baby status: doing well OB - PN: Obj Data Labs CBC & Chem 7: 10/15/20 04:02 Labs: Laboratory Results - last 24 hr 10/13/20 22:54 RPR Non-reactive OB - PN A/P Plan day: 2 Plan: routine care, discharge home, follow up 6 weeks and other (Plans Mirena IUD) Time Spent With Patient Time: Total time spent is greater than 50% in coordination of care (as documented) at patient's floor/unit and/or counseling patient: Exam : Bimanual exam- vagina & uterus: other (Uterus firm, nt @U)
--- NOTE | 2020-10-16 07:49 | P.DS_ITS ---
DS: Admitting Diagnosis Admitting Diagnosis Admitting Diagnosis: SROM DS: Discharge Diagnosis Discharge Diagnosis (1) (normal spontaneous vaginal delivery): Code(s): O80 - Encounter for full-term uncomplicated delivery Status: Acute OB - DS: Summary OB Procedures : Ultrasound OB Procedures Intrapartum: Spontaneous Vag Delivery OB Procedures: : None Peripartum Data Infant Delivery Method: Natural Vaginal Laceration Description: Perineal - 2nd Degree complications: none Status at Discharge Functional status at discharge: independent ambulation Overall status at discharge: patient is progressing back to baseline Time Spent with Patient Time attestation: Total time spent providing and/or coordinating discharge services: DS: Data Data Completed and Pending Pending studies at discharge: Pending at discharge 10/14/20 14:35 Surgical [PTH] Routine Labs on day of discharge: Labs from last 24 hours 10/13/20 22:54 RPR Non-reactive Discharge Plan Discharge Attending physician on discharge: Flor Donnelly Consulting providers: Ministerio Lemus Discharging Clinician: Flor Donnelly Anticipated Discharge Date/Time: 10/16/20 07:49 Patient Disposition: Home, Self-Care Activity: may shower and pelvic rest Diet: regular Patient Instructions: Antibiotic Form Stand Alone Forms: General Discharge Information Follow-up/Referrals: Flor Donnelly MD [Physician] - 6 Weeks Discharge Medications: Continued ergocalciferol (vitamin D2) [Vitamin D2] 1,250 mcg (50,000 unit) Capsule 1,250 mcg PO WEEKLY RF: 0 PNV cmb#95-ferrous fumarate-FA [] 28 mg iron- 800 mcg Tablet 1 tablet PO DAILY RF: 0 Discontinued valacyclovir [Valtrex] 500 mg Tablet 500 mg PO DAILY RF: 0 ondansetron 4 mg Tablet,Disintegrating 4 mg PO Q8H PRN (Reason: Nausea) RF: 0 Date of admission: 10/13/20 21:33 Primary Care Provider: PHYSICIAN,BOW MAKER GIFT WRAPPING Admitting Provider: Louie Ash Attending physician on admission: Louie Ash Condition: Stable
[2020-10-16] MEDS: MULTIVIT/MIN/PREN/FOL AC/IRON TABLET 1 TAB PO (08:00)
[2020-10-16] MEDS: IBUPROFEN 600 MG TABLET PO (08:00)
[2020-10-16] MEDS: DOCUSATE SODIUM 100 MG CAPSULE PO (08:00)
[2020-10-16] MEDS: valACYclovir HCL 500 MG TABLET PO (08:00)
[2020-10-16] MEDS: POLYSACCHARIDE IRON COMPLEX 150 MG CAPSULE PO (08:00)
[2020-10-16 08:40] VITALS: BP 127/71; PULSE 85; RESP 18; TEMP 36.8; O2SAT 100
--- NOTE | 2020-10-16 11:00 | PC.NURSE ---
Patient instructed to view the discharge video Mother & Baby Care, The First Two Weeks . Patient was given the opportunity and encouraged to ask questions. Patient verbalized understanding of information shared and has been given the mother/baby guide for home reference.
[2020-10-17 11:18] VITALS: BP 140/81; PULSE 85; RESP 20; TEMP 36.9; O2SAT 100
== END 2020-10-16 11:40 | disposition home or self-care (01) | DRG 560 ==
LOC: ANHLDR 10-14 14:45 → ANHOB2 10-16 07:50 → ANHLDR 10-17 08:06 → ANHOB2 10-17 08:06
PROVIDERS: Admitting Provider Obstetrics & Gynecology; Visit Provider Obstetrics & Gynecology Gynecology
DX: O99.824 Streptococcus B carrier state complicating childbirth (principal); Z37.0 Single live birth; Z3A.39 39 weeks gestation of pregnancy; O70.0 First degree perineal laceration during delivery; O41.1230 Chorioamnionitis, third trimester, not applicable or unspecified; O98.32 Other infections with a predominantly sexual mode of transmission complicating childbirth; A60.09 Herpesviral infection of other urogenital tract; O99.214 Obesity complicating childbirth; E66.9 Obesity, unspecified
CPT/HCPCS: 36415; 59025; 84112; 85014; 85018; 85025; 86592; 86850; 86900; 86901; 88307; 99199; A9270; J0290; J2590; J2795; J7120

== ENCOUNTER 2020-11-13 20:16 | Observation (INO) | payer OTHER, SELFPAY ==
[2020-11-13] VITALS (8 sets, daily range): BP systolic 127–145; BP diastolic 75–86; PULSE 56–69; RESP 16–24; TEMP 36.6–36.9; O2SAT 95–100
--- NOTE | ~2020-11-13 | XR_ITS ---
XR chest 1V DATE: 11/13/2020 21:03 INDICATION: Midsternal chest and epigastric abdominal pain. Shortness of breath. TECHNIQUE: PA chest COMPARISON: None FINDINGS: Normal heart size. No hilar or mediastinal enlargement. No pulmonary infiltrate or consol idation, pulmonary vascular congestion or pleural effusion or pneumothorax. Mild thoracolumbar scoli osis. IMPRESSION: No active cardiopulmonary disease Reviewed, dictated and finalized at location A. L MAID
--- NOTE | ~2020-11-13 | MR_ITS ---
EXAMINATION: MR MRCP wo/w con/w 3D wo ind DATE: 11/14/2020 12:46 INDICATION: Abnormal liver function tests. Cholelithiasis. TECHNIQUE: Magnetic resonance imaging (MRI) of the abdomen was performed without and with 17 L MultiH ance intravenous contrast. Sequences included coronal T2-weighted FS FSE, coronal T2-weighted FSE, ax ial T1-weighted LAVA, coronal FS FIESTA, axial dual-echo T1-weighted SPGR, coronal lava-FLEX, sagitta l T2-weighted FSE, axial T2-weighted FSE, and axial DWI. Thick-slab T2-weighted FSE images were obtai ariel for magnetic resonance cholangiopancreatography (MRCP). Maximum intensity projection 3-D reconstr uctions of the volumetric data were created by the technologist. Postcontrast sequences included carleen nal LAVA-flex and time course of axial T1-weighted LAVA. COMPARISON: CT abdomen and pelvis 11/13/2020 FINDINGS: ABDOMEN MRI: The liver and gallbladder are normal. There are gallstones in the gallbladder, which is normal in size. The pancreas, adrenal glands, and kidneys are normal. There are no dilated loops of b owel. There is a small volume of pelvic ascites, likely physiologic. There are no pathologically enla rged lymph nodes. ABDOMEN MRCP: The common duct is normal and measures 6 mm. No choledocholithiasis. IMPRESSION: 1. Cholelithiasis. No evidence of acute cholecystitis. Reviewed, dictated and finalized at location A. T METAL TECHNICIAN
--- NOTE | ~2020-11-13 | CT_ITS ---
EXAMINATION: CTA chest PE abdomen pel EXAM DATE: 11/14/2020 00:07 INDICATION: Midsternal chest pain, mid epigastric pain, symptoms 3 days. Shortness of breath today. TECHNIQUE: Spiral CTA of the chest (pulmonary arteries) was performed with 100 cc Omnipaque 350 intr avenous contrast injection. Images were acquired during the pulmonary arterial phase. Coronal maxi mum intensity projection 3D-reconstructions were created by the technologist on dedicated workstation . Axial, coronal and sagittal reformatted images were reviewed. Spiral CT of the abdomen and pelvis was then performed with the same intravenous contrast injection. Axial, coronal and sagittal reform atted images were reviewed. The dose-length product (DLP) for this examination was 1759.90 mGy-cm. The exposure was tailored according to patient size (auto mA exposure control), and iterative recons truction (ASIR) was used as additional dose reduction technique. There is no prior study for compari son. FINDINGS: CHEST: Pulmonary arteries are well opacified and without intraluminal filling defects. No thoracic aortic dissection. Small amount of posterior basilar groundglass opacity probably atelectasis. The re are no pleural or pericardial effusions. Tracheobronchial tree is patent. There is no mediasti nal, hilar or axillary lymphadenopathy. There is no pneumothorax. Heart normal in size. No evid ence of coronary arterial calcification. ABDOMEN PELVIS: The liver, spleen, adrenal glands and pancreas are unremarkable. There are gallstone s within an otherwise unremarkable gallbladder. No evidence of obstructive biliary disease. Portal and splenic veins are patent. Kidneys enhance symmetrically. There is no hydronephrosis. The uter us is unremarkable. The bladder is unremarkable. There is no retroperitoneal or pelvic lymphadenop athy. The appendix is normal. The stomach and small bowel are unremarkable. There is expected amount of c olonic stool. No free intraperitoneal gas. The bones are unremarkable. IMPRESSION: 1. No pulmonary embolism or acute abdominal findings. 2. Mild basilar dependent groundglass opacity probably atelectasis. 3. Cholelithiasis. Reviewed, dictated and finalized at location A. L BOX MAKER
--- NOTE | 2020-11-13 20:28 | ECG_ITS ---
Measurements Intervals [place] Rate: 66 P: 31 WA: 154 QRS: 34 QRSD: 85 T: 24 QT: 387 QTc: 406 Interpretive Statements SINUS RHYTHM WITH SINUS ARRHYTHMIA LOW QRS VOLTAGE IN PRECORDIAL LEADS BASELINE ARTIFACT- I, III, AVL BORDERLINE ECG Electronically Signed On 11-14-2020 6:28:28 CHAIN TENDER by Cristi Leo D.O.
[2020-11-13 20:54] LABS: Basophils Percent Auto 0.4 % (0.2-1.2); Eosinophils Absolute Auto 0.3 K/mm3 (0-0.3); Eosinophils Percent Auto 3.9 % (0-4.4); Hematocrit 40.7 % (37.0-47.0); Hemoglobin 12.9 g/dL (12.0-15.0); Immature Granulocyte Absolute 0.03 K/mm3 (0.00-0.031); Immature Granulocyte Percent A 0.4 % (0-0.5); Lymphocytes Percent Auto 16.3 % (18.3-44.2); Mean Corpuscular HGB Conc 31.7 g/dl (32-36); Mean Corpuscular Volume 81.9 fl (80-100); Mean Platelet Volume 11.5 fl (7.4-10.4); Monocytes Absolute Auto 0.6 K/mm3 (0.1-0.6); Neutrophils Absolute Auto 5.7 K/mm3 (1.3-6.7); Platelet Count Result 318 k/mm3 (150-375); Red Blood Count 4.97 M/mm3 (4.2-5.4); Red Cell Distribution Width 13.9 % (11.5-14.5)
[2020-11-13 21:07] LABS: Alanine Aminotransferase 279 U/L (4-35); Albumin Level 4.4 g/dL (3.5-5.1); Alkaline Phosphatase 267 U/L (38-126); Anion Gap 7 mmol/L (8-16); Aspartate Amino Transferase 290 U/L (14-36); Bilirubin,Total 2.6 mg/dL (0.2-1.3); Blood Urea Nitrogen 12 mg/dL (7-17); Calcium 9.3 mg/dL (8.4-10.2); Carbon Dioxide 31 mmol/L (22-30); Chloride 103 mmol/L (98-107); Estimated CRCL calculation 118 ml/min; Estimated Glomerular Filt Rate > 60; Glucose 101 mg/dL (65-105); Potassium 3.8 mmol/L (3.4-5.0); Sodium 141 mmol/L (137-145)
[2020-11-13 21:17] LABS: Troponin I < 0.012 ng/mL (0.000-0.034)
[2020-11-13 21:43] LABS: Add Urine Microscopic? YES; Appearance Urine Clear (Clear); Bacteria Urine Trace /hpf; Bilirubin Urine 2+ (Negative); Blood Urine Negative (Negative); Color Urine Amber (Yellow); Glucose Urine UA Negative (Negative); Ketones Urine Negative (Negative); Leukocyte Esterase Ur 1+ LEU/UL (Negative); Mucus Urine Few /lpf; Nitrate Urine Negative (Negative); Protein Urine 1+ mg/dL (Negative); Specific Grav Ur 1.027 (1.001-1.035); Squamous Epithelial Cell Urine Moderate /hpf (Few)
[2020-11-13 21:56] LABS: Lipase 106 U/L (23-300)
[2020-11-13] MEDS: KETOROLAC 30 MG/ML VIAL (*BKC) IV PUSH (23:17)
[2020-11-14] VITALS (17 sets, daily range): BP systolic 127–152; BP diastolic 58–90; PULSE 50–73; RESP 14–22; TEMP 35.9–36.9; O2SAT 96–100; BMI 34.2
--- NOTE | 2020-11-14 01:23 | ED.GENADULT ---
HPI - General Adult General Chief complaint: Chest Pain Stated complaint: epigastric pain Time Seen by Provider: 11/13/20 22:22 History of Present Illness HPI narrative: Patient is a 20-year-old female who presents the emergency department chief complaint of chest and epigastric discomfort. The patient states the pain began today states it hurts whenever she takes a deep breath or when she moves around. Patient states the pain is sharp reports that it is not improved by anything. Patient denies fever denies chills denies vomiting. Related Data Home Medications Medication Instructions Recorded Confirmed PNV cmb#95-ferrous fumarate-FA 1 tablet PO DAILY 09/29/20 09/29/20 [] ergocalciferol (vitamin D2) 1,250 mcg PO WEEKLY 09/29/20 09/29/20 [Vitamin D2] Allergies Allergy/AdvReac Type Severity Reaction Status Date / Time No Known Allergies Allergy Verified 08/07/20 18:03 Review of Systems Review of Systems: Narrative: A 10 system review of systems was completed on the patient and is negative except for what is stated in the HPI. Nursing and ancillary documentation was reviewed. 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 HEAD: Normocephalic, atraumatic. EYES: PERRLA and EOMI. ENT: Nares clear, no rhinorrhea or epistaxis. Mucous membranes moist. NECK: Supple. CHEST: Clear to auscultation. No respiratory distress. Chest wall is tender to palpation at the sternal border HEART: Regular rate and rhythm. No murmur heard. Normal peripheral pulses. ABDOMEN: Soft, mild tenderness in the right upper quadrant, nondistended, normal active bowel sounds. EXTREMITIES: Normal range of motion. No edema. SKIN: Warm, dry, no rash. NEURO: No focal deficits. Alert and oriented x3. PSYCH: Normal mood and affect. Course Course Emergency Course: Patient's pain was improved with Toradol. Laboratory studies showed a marked elevation in the patient's LFTs with a bilirubin of 2.6. This is concerning for an obstructive pattern. CT scan of the abdomen pelvis and also CTA of the chest showed evidence of a 8 mm gallstone but without evidence of acute cholecystitis or biliary ductal dilatation. Due to the concern for possible obstructive pattern on the liver enzymes the patient case was discussed with Dr. Sanchez who is on-call for general surgery the patient will be admitted for observation and repeat the liver enzymes and CBC in the morning. Depending on the results of the studies the patient may require further testing including possible MRCP. Vital Signs Vital signs: Vital Signs Temperature 36.9 C 11/13/20 20:30 Pulse Rate 69 11/13/20 20:30 Respiratory Rate 16 11/13/20 20:30 Blood Pressure 137/86 11/13/20 20:30 Pulse Oximetry 100 11/13/20 20:30 Temperature 36.6 C 11/13/20 22:18 Pulse Rate 55 L 11/14/20 00:16 Respiratory Rate 19 11/14/20 00:16 Blood Pressure 127/76 11/14/20 00:16 Pulse Oximetry 98 11/14/20 00:16 [place]
--- NOTE | 2020-11-14 02:05 | ADMGEN ---
This patient, Marium Hernandez, was admitted to Medical Room 340-01. Patient/family oriented to hospital policies and general routines including ID bracelet, bed and alarms, visiting hours, pain management, procedures, bathroom and other care routines, personal items, smoking policy, room service/diet, and visiting hours. Information on how to activate the Rapid Response Team has been discussed. Patient/Family are encouraged to report perceived risks to care and to ask questions if they do not understand what they are told or what they should do.
[2020-11-14] MEDS: SODIUM CHLORIDE 0.9% IV 1,000 ML 125 ML IV CONT ×2 (02:10→09:37)
[2020-11-14 09:08] LABS: Basophils Percent Auto 0.3 % (0.2-1.2); Eosinophils Absolute Auto 0.3 K/mm3 (0-0.3); Eosinophils Percent Auto 5.2 % (0-4.4); Hematocrit 37.1 % (37.0-47.0); Immature Granulocyte Absolute 0.03 K/mm3 (0.00-0.031); Immature Granulocyte Percent A 0.5 % (0-0.5); Lymphocytes Absolute Auto 1.44 K/mm3 (0.9-3.2); Lymphocytes Percent Auto 24.2 % (18.3-44.2); Mean Corpuscular HGB Conc 32.3 g/dl (32-36); Mean Corpuscular Volume 80.3 fl (80-100); Mean Platelet Volume 11.4 fl (7.4-10.4); Monocytes Absolute Auto 0.5 K/mm3 (0.1-0.6); Monocytes Percent Auto 8.1 % (2.6-8.5); Neutrophils Absolute Auto 3.7 K/mm3 (1.3-6.7); Neutrophils Percent Auto 61.7 % (45.5-73.1); Platelet Count Result 292 k/mm3 (150-375); Red Blood Count 4.62 M/mm3 (4.2-5.4); Red Cell Distribution Width 13.9 % (11.5-14.5)
[2020-11-14 09:19] LABS: Lipase 110 U/L (23-300)
[2020-11-14 09:20] LABS: Alanine Aminotransferase 235 U/L (4-35); Albumin Level 3.7 g/dL (3.5-5.1); Alkaline Phosphatase 276 U/L (38-126); Anion Gap 7 mmol/L (8-16); Aspartate Amino Transferase 200 U/L (14-36); Bilirubin,Total 2.8 mg/dL (0.2-1.3); Blood Urea Nitrogen 12 mg/dL (7-17); Calcium 8.6 mg/dL (8.4-10.2); Carbon Dioxide 25 mmol/L (22-30); Chloride 107 mmol/L (98-107); Estimated CRCL calculation 132 ml/min; Estimated Glomerular Filt Rate > 60; Glucose 85 mg/dL (65-105); Potassium 3.9 mmol/L (3.4-5.0); Sodium 139 mmol/L (137-145)
--- NOTE | 2020-11-14 09:50 | PM.IMHP ---
H&P: HPI History of Present Illness Date/Time: 11/14/20 09:50 Chief Complaint: Abdominal pain Narrative: Marium Hernandez is a 20 year old female who is 1 month an uneventful vaginal delivery, who presented to the emergency department with substernal chest pain. She reports an onset of this pain Thursday evening, 3 nights ago. Initially this pain was mild. She reports radiating pain to her mid back. She cannot recall what she ate Thursday during the day or for dinner. The pain was persistent but would intensify and improve spontaneously throughout the next 2 days. Eating did not aggravate the pain. She then developed nausea with 1 episode of vomiting at home. The pain worsened last night, and her boyfriend convinced her to go to the ER for further evaluation. CT of the chest/abdomen/pelvis showed cholelithiasis, no PE or acute abdominal findings, and mild basilar dependent ground-glass opacity probably atelectasis. Labs revealed total bilirubin 2.6, AST 290, ALT 279, alk-phos 267, normal white blood cell count, and normal lipase. The patient was admitted to our service overnight and made NPO. She was started on IV fluids and antiemetics. The patient is now seen on the medical floor. She reports her chest pain did improve with the IV ketorolac she was given in the ER, but the pain is now returning and rates it at a 3/10 on a pain scale at this time. She reports still having nausea, but no vomiting since admission. Her bowels have been moving normally for her, with her last bowel movement yesterday morning. She denies ever having this pain in the past. No other complaints at this time. Denies any recent symptoms of shortness of breath, cough, congestion, sore throat, or loss of taste/smell. No recent known contact to COVID-19. Review of Systems Review of Systems: All systems reviewed & are unremarkable except as noted in HPI and below Constitutional: Constitutional: Reports as per HPI, Denies chills, Denies fatigue, Denies fever(s), Denies headache(s) and Denies weakness Eyes: Eyes: Reports no additional eye complaints, Denies change in vision, Denies dry eyes and Denies eye pain ENT: Reports system reviewed and no additional complaints, except as documented, Denies dysphagia, Denies dizziness, Denies headache(s) and Denies hearing loss Cardiovascular: Cardiovascular: Reports no additional cardiovascular complaints, Denies chest pain, Denies pedal edema, Denies leg edema, Denies lightheadedness, Denies radiating jaw, neck or arm pain and Denies dyspnea Respiratory: Respiratory: Reports no additional respiratory complaints, Denies cough, Denies hemoptysis, Denies dyspnea and Denies wheezing Gastrointestinal: Gastrointestinal: Reports as per HPI, Reports no additional gastrointestinal complaints, Reports abdominal pain, Denies hematochezia, Denies change in bowel habits, Denies constipation, Denies dysphagia, Reports nausea, Reports vomiting and Denies hematemesis Genitourinary: Genitourinary: Denies hematuria and Denies dysuria Musculoskeletal: Musculoskeletal: Reports no additional musculoskeletal complaints, Denies abnormal gait, Denies deformity, Denies joint swelling, Denies numbness and Denies tingling Integumentary/Breasts: Skin/Breast: Denies new lesions, Denies rash and Denies wounds Neurologic: Reports system reviewed and no additional complaints, except as documented, Denies abnormal gait, Denies dizziness, Denies headache(s), Denies numbness, Denies tingling and Denies weakness Psychiatric: Psychiatric: Reports no additional psychiatric complaints, Denies anxiety and Denies depression Endocrine: Endocrine: Denies fatigue PMFSH Past Medical History Medical History Cystic acne Hx of migraines (normal spontaneous vaginal delivery) Obese Surgical History Surgical History No pertinent past surgical his
--- NOTE | 2020-11-14 12:02 | PC.NURSE ---
Patient to MRI via wheelchair.
--- NOTE | 2020-11-14 12:51 | PC.NURSE ---
Patient returned from MRI via wheelchair.
--- NOTE | 2020-11-14 16:33 | PM.DS ---
DS: Admitting Diagnosis Admitting Diagnosis Admitting Diagnosis: Cholelithiasis Elevated LFTs BMI 34 Lactating mother DS: Discharge Diagnosis Discharge Diagnosis (1) Cholelithiasis: Qualifiers: Biliary obstruction: without biliary obstruction Cholecystitis presence: without cholecystitis Cholelithiasis location: gallbladder Qualified Code(s): K80.20 - Calculus of gallbladder without cholecystitis without obstruction Code(s): K80.20 - Calculus of gallbladder without cholecystitis without obstruction Status: Acute (2) Elevated liver enzymes: Code(s): R74.8 - Abnormal levels of other serum enzymes Status: Acute (3) Obesity (BMI 30-39.9): Code(s): E66.9 - Obesity, unspecified Status: Acute (4) Lactating mother: Code(s): Z39.1 - Encounter for care and examination of lactating mother Status: Acute DS: Summary Hospital Course Reason for hospitalization: Marium Hernandez is a 20 year old female who is 1 month of an uneventful vaginal delivery, who presented to the emergency department with substernal chest pain overnight. Her pain started three nights ago and has been radiating to her mid back. ED workup revealed elevated LFTs and abnormalities on the CT. CTA of the chest/abdomen/pelvis showed cholelithiasis, no PE or acute abdominal findings, and mild basilar dependent ground-glass opacity probably atelectasis. The patient was then admitted to our service for surgical evaluation. Hospital Course: After evaluating the patient this morning, she did continue to have some mild chest pain. Her labs repeated this morning and did show that her liver enzymes remained elevated. Therefore we ordered an MRCP to evaluate for choledocholithiasis. MRCP showed cholelithiasis, no evidence of acute cholecystitis, and no abnormalities of the common bile duct. The common bile duct measured 6 mm and there was no choledocholithiasis. Dr. Sanchez then went to evaluate the patient following MRCP results and discussed with her his recommendations of proceeding with a laparoscopic cholecystectomy, possible open, possible IOC. We would be able to add her onto the surgery schedule tomorrow afternoon. The patient is refusing to stay until tomorrow and would prefer to come back as an outpatient for surgery knowing the risks of this. I have discussed the plan with Dr. Sanchez. Therefore, we will set the patient up for a cholecystectomy early next week and discharge her at this time. I have discussed discharge instructions with the patient and we will have her follow a low-fat diet up until surgery and for 2 weeks following surgery. Status at Discharge Functional status at discharge: independent ambulation Overall status at discharge: patient is progressing back to baseline Time Spent with Patient Time attestation: Total time spent providing and/or coordinating discharge services: Time spent: Less than 30 minutes DS: Data Data Completed and Pending Completed studies during hospitalization: ITS Impressions Chest X-Ray 11/13/20 21:12 IMPRESSION: No active cardiopulmonary disease Chest/Abdomen/Pelvis CTA 11/14/20 07:34 IMPRESSION: 1. No pulmonary embolism or acute abdominal findings. 2. Mild basilar dependent groundglass opacity probably atelectasis. 3. Cholelithiasis. MRCP 11/14/20 13:05 IMPRESSION: 1. Cholelithiasis. No evidence of acute cholecystitis. Labs on day of discharge: Labs from last 24 hours 11/14/20 11/14/20 11/14/20 08:35 08:35 08:35 WBC 6.0 RBC 4.62 Hgb 12.0 Hct 37.1 MCV 80.3 MCH 26.0 MCHC 32.3 RDW 13.9 Plt Count 292 MPV 11.4 H Immature Gran % (Auto) 0.5 Neut % (Auto) 61.7 Lymph % (Auto) 24.2 [place] % (Auto) 8.1 Eos % (Auto) 5.2 H Baso % (Auto) 0.3 Lymph # (Auto) 1.44 [place] # (Auto) 0.5 Eos # (Auto) 0.3 Baso # (Auto) 0.0 Abs Immat Gran (auto) 0.03 Absolute Neut
== END 2020-11-14 17:41 | disposition home or self-care (01) ==
LOC: ANHED 11-14 01:27 → ANH3MED 11-14 01:46
PROVIDERS: Emergency Medicine; Nurse Practitioner Family; Admitting Provider Surgery; Emergency Provider Emergency Medicine; Visit Provider Surgery
DX: K80.20 Calculus of gallbladder without cholecystitis without obstruction (principal); R74.8 Abnormal levels of other serum enzymes; E66.9 Obesity, unspecified; Z68.34 Body mass index [BMI] 34.0-34.9, adult
CPT/HCPCS: 36415; 71045; 71275; 74177; 74183; 76376; 80053; 81001; 81025; 83690; 84484; 85025; 87077; 87086; 87088; 93005; 96361; 96374; 99285; A9577; G0378; G0379; J1885; J7030; Q9967

== ENCOUNTER 2020-11-16 00:42 | Outpatient (CLI) | payer OTHER, SELFPAY ==
[2020-11-16 19:17] LABS: SARS-CoV-2 RNA PCR Negative
== END 2020-11-16 00:43 | disposition home or self-care (01) ==
LOC: ANHCOVIDDT 00:42
PROVIDERS: Visit Provider Surgery
DX: Z01.812 Encounter for preprocedural laboratory examination (principal); Z20.822 Contact with and (suspected) exposure to COVID-19
CPT/HCPCS: C9803; U0003; U0005

== ENCOUNTER 2020-11-19 01:37 | Day surgery (SDC) | payer OTHER, SELFPAY ==
[2020-11-16 09:58] VITALS: BMI 34.2
[2020-11-19] VITALS (10 sets, daily range): BP systolic 132–145; BP diastolic 64–99; PULSE 68–93; RESP 10–18; TEMP 36.1–36.3; O2SAT 98–100; BMI 32.8
[2020-11-19] MEDS: ACETAMINOPHEN 500 MG TABLET 1000 MG PO (12:08)
--- NOTE | 2020-11-19 12:11 | P.PNAN_ITS ---
Anes - Initial Pre Proc Eval Procedure: Operation Date: 11/19/20 13:30 Proposed Procedures p Laparoscopic Cholecystectomy, Possible Intraoperative Cholangiogram, Possible Open - Elijah Sanchez MD Date/Time: 11/19/20 12:11 Surgeon: Elijah Sanchez MD Pre Op Diagnosis: Acute Cholecystitis With Stones Patient Data Age: 20 Gender: F Height: 1.6 m Weight: 84.1 kg Allergies Allergy/AdvReac Type Severity Reaction Status Date / Time No Known Allergies Allergy Verified 11/19/20 11:53 Home Medications Medication Instructions Recorded Confirmed Type ergocalciferol (vitamin D2) 1,250 mcg PO QTUTH 09/29/20 11/19/20 History [Vitamin D2] Patient hx anesthesia problems: none Family hx anesthesia problems: none PMFSH Past Medical History Medical History Cystic acne Hx of migraines (normal spontaneous vaginal delivery) Obese Surgical History Surgical History No pertinent past surgical history Family History Family History Father , Related to her stroke Cerebrovascular accident Hypertension Diabetes mellitus Mother Alive and well Sibling Gallbladder disease Social History Social History Social History: The patient lives at home with her boyfriend and one month old daughter. She is currently . 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 Questions were solicited and answers provided to the satisfaction of the patient/family/POA.
[2020-11-19 12:51] LABS: Alanine Aminotransferase 117 U/L (4-35); Alkaline Phosphatase 237 U/L (38-126); Amylase 450 U/L (30-110); Aspartate Amino Transferase 97 U/L (14-36); Bilirubin,Total 2.4 mg/dL (0.2-1.3)
--- NOTE | 2020-11-19 13:21 | SUR.PREOP ---
PT NOTIFIED SURGERY DELAYED APPROX 1 HOUR
--- NOTE | 2020-11-19 13:27 | SUR.PREOP ---
PT STATES SHE HAS BEEN TEXTING HER BOYFRIEND AND HE IS AWARE THAT SURGERY IS DELAYED
[2020-11-19 13:53] LABS: Lipase 4508 U/L (23-300)
--- NOTE | 2020-11-19 14:25 | SUR.PREOP ---
DR HOPPER STATES YES TO ANC 2GM
--- NOTE | 2020-11-19 14:32 | WPDHPUPDATE1 ---
History and Physical Update Update Date/Time: 11/19/20 14:32 History and Physical has been reviewed, including an updated exam of the patient. There are NO changes in the patient's condition. Risks, benefits, and alternatives of a laparoscopic cholecystectomy possible IOC possible open cholecystectomy have been discussed and questions answered. Patient agrees to proceed with procedure.
[2020-11-19] MEDS: ceFAZolin 2 GM/D5W 50 ML 2 GM/50 ML BAG IVPB (14:47)
[2020-11-19] MEDS: BUPIVACAINE/EPINEPHRINE 0.25% 50 ML VIAL 20 ML INFILTRATE (15:25)
[2020-11-19] MEDS: LACTATED RINGERS 1,000 ML 30 ML IV CONT ×3 (16:29→17:14)
--- NOTE | 2020-11-19 16:41 | PM.PROC ---
Procedure Note - Detailed Date of procedure: 11/19/20 Pre-op diagnosis: Acute Cholecystitis With Stones Could not delete the above diagnosis. I disagree with acute cholecystitis Pre-op DX: Chronic Cholecystitis with Cholelithiasis Post-op diagnosis: same Procedure performed: Laparoscopic Cholecystectomy Description of procedure: Patient was seen preoperatively in the holding area and risks, benefits and alternatives confirmed. Patient was taken to the operating room and general anesthesia was induced. A time out was then preformed with the surgery team confirming patient and site of surgery. The abdomen was prepped and draped in the usual sterile fashion. Incision was made just below the umbilicus with an 11 blade knife. I placed 2 stay sutures of O- Vicryl on either side of the mid-line fascia beneath the umbilicus and was then able to slide in the Kim cannula through the fascial defect into the peritoneum. First under low flow and then under high flow the abdomen was insufflated with carbon dioxide never exceeding a pressure of 14. Three 5 mm trocars were then introduced under direct vision. The following trocars were introduced under direct vision: a 5 mm in the epigastrium and two 5 mm trocars along the right costal margin laterally in the subcostal area. There were a few filmy omental adhesions to the underside of the gallbladder down at the area just above and at the [place]. These were taken down with blunt and sharp dissection using some Bovie cautery for hemostasis. We were able to dissect this completely away from the neck of the gallbladder. I then carefully used the L-shaped cautery and the [place] dissector to dissect out the triangle of [place]. I then was able to dissect out both the cystic duct and two branches of the cystic artery which were dissected up onto the aanterior and postior surface of the GB so that I was sure they were ok to clip. After doing this I could see a nice window of safety. The gall bladder was grasped and the cystic duct and both branches of the cystic artery were dissected free and clipped with an 5 mm endo-clip starting gate driver. The cystic duct and arteries were clipped with use of 2 clips on the patient's side 1 on the gallbladder side utilizing a 5 mm endoclip-starting gate driver. The cystic duct was then transected. The two branches of the cystic artery were also transected at this point. The gall bladder was removed using electrocautery and then removed from the abdomen using a large 10 mm grasper via the umbilical incision. After removing the gallbladder replace the Kim cannula back in the opening at the umbilicus. Holding this in place with 1 suture we carefully moved the 5 mm camera to the umbilical port site and inspected the gallbladder bed carefully irrigated this out and made sure the hemostasis was good within the gallbladder bed itself. All the irrigation and bloody fluid was suctioned from the abdomen as best possible. The trocars were removed visualizing hemostasis and the remaining gas evacuated. The large trocar site at the umbilicus was closed with use of the 2 stay sutures of 0 Vicryl mentioned above and also a figure of 8 O-Vicryl suture. The 2 stay sutures mentioned above on either side of the fascia were also tied together to help approximate this midline fascia. Further local anesthetic was placed into each incision for postop pain control. The skin incisions were closed with subcuticular suture of 4-0 Monocryl. Surgical glue then was applied to all the incisions. Patient tolerated the procedure well was taken to the recovery room in good condition. Implants: none Anesthesia: JYOTHI Surgeon: Elijah Sanchez MD Fast Food Manager: Romeo DOMINGUEZ, OR clinical assistant professor Estimated blood loss (mL): 25 Drains: No Packing: No Pathology: yes (Gallbladder) Complications: No immediate complications Condition: stable Disposition: PACU Findings: Normal sized cystic duct with 2 branches of the cystic artery. Ga
[2020-11-19] MEDS: ONDANSETRON INJ 4 MG/2 ML VIAL IV PUSH ×2 (16:49→18:05)
[2020-11-19] MEDS: fentaNYL CITRATE INJ (*CRX) 100 MCG/2 ML VIAL 25 MCG IV PUSH ×4 (17:11→17:37)
[2020-11-19] MEDS: diphenhydrAMINE HCl INJ 50 MG/ML VIAL 25 MG IV PUSH ×2 (18:27→18:43)
[2020-11-19] MEDS: SCOPOLAMINE 1.5 MG PATCH TRANSDERM (18:27)
== END 2020-11-19 19:10 | disposition home or self-care (01) ==
PROVIDERS: Visit Provider Surgery
PROC: 0FT44ZZ Resection of Gallbladder, Percutaneous Endoscopic Approach (ICD-10-PCS; CPT 47562; principal; 2020-11-19 13:30)
DX: K80.10 Calculus of gallbladder with chronic cholecystitis without obstruction (principal); E66.9 Obesity, unspecified; Z68.32 Body mass index [BMI] 32.0-32.9, adult
CPT/HCPCS: 47562; 36415; 80076; 82150; 83690; 88304; A9270; J0330; J0690; J1100; J1200; J2250; J2370; J2405; J2704; J3010; J7120

== ENCOUNTER 2020-11-22 11:51 | Outpatient (CLI) | payer OTHER, SELFPAY ==
[2020-11-22 12:08] LABS: Basophils Percent Auto 0.4 % (0.2-1.2); Eosinophils Absolute Auto 0.3 K/mm3 (0-0.3); Eosinophils Percent Auto 4.2 % (0-4.4); Hematocrit 35.3 % (37.0-47.0); Immature Granulocyte Absolute 0.02 K/mm3 (0.00-0.031); Immature Granulocyte Percent A 0.3 % (0-0.5); Lymphocytes Absolute Auto 1.85 K/mm3 (0.9-3.2); Lymphocytes Percent Auto 25.9 % (18.3-44.2); Mean Corpuscular HGB Conc 31.2 g/dl (32-36); Mean Corpuscular Hemoglobin 25.2 pg (26-34); Mean Corpuscular Volume 80.8 fl (80-100); Mean Platelet Volume 11.5 fl (7.4-10.4); Monocytes Absolute Auto 0.7 K/mm3 (0.1-0.6); Monocytes Percent Auto 10.3 % (2.6-8.5); Neutrophils Absolute Auto 4.2 K/mm3 (1.3-6.7); Neutrophils Percent Auto 58.9 % (45.5-73.1); Platelet Count Result 274 k/mm3 (150-375); Red Blood Count 4.37 M/mm3 (4.2-5.4); Red Cell Distribution Width 14.6 % (11.5-14.5); White Blood Count 7.2 K/mm3 (4.5-10.0)
[2020-11-22 12:21] LABS: Alanine Aminotransferase 88 U/L (4-35); Albumin Level 3.9 g/dL (3.5-5.1); Alkaline Phosphatase 186 U/L (38-126); Anion Gap 6 mmol/L (8-16); Aspartate Amino Transferase 64 U/L (14-36); Bilirubin,Total 0.7 mg/dL (0.2-1.3); Blood Urea Nitrogen 10 mg/dL (7-17); Calcium 9.2 mg/dL (8.4-10.2); Carbon Dioxide 27 mmol/L (22-30); Chloride 108 mmol/L (98-107); Estimated Glomerular Filt Rate > 60; Glucose 93 mg/dL (65-105); Lipase 144 U/L (23-300); Potassium 4.3 mmol/L (3.4-5.0); Sodium 141 mmol/L (137-145)
== END 2020-11-22 11:52 | disposition home or self-care (01) ==
LOC: ANHLAB 11:53
PROVIDERS: Visit Provider Surgery
DX: K80.20 Calculus of gallbladder without cholecystitis without obstruction (principal); R74.8 Abnormal levels of other serum enzymes
CPT/HCPCS: 36415; 80053; 83690; 85025

== ENCOUNTER 2021-02-17 09:49 | Outpatient (CLI) | payer OTHER, SELFPAY ==
--- NOTE | ~2021-02-17 | US_ITS ---
EXAMINATION: US pelvic complete w TV DATE: 02/17/2021 10:24 INDICATION: IUD placement TECHNIQUE: Multiple transabdominal and endovaginal sonographic images of the pelvis were obtained. COMPARISON: None. FINDINGS: The uterus measures 7.6 x 3.7 x 5.7 cm. The endometrial complex measures 4 mm in thickness. Linear T -shaped echogenic and shadowing IUD is seen in expected position within the endometrial canal. The ri ght ovary measures 1.9 x 1.3 x 1.0 cm. The left ovary measures 2.3 x 1.6 x 1.5 cm. Vascular flow iden tified in both ovaries on color Doppler. There is no free fluid in the pelvis. IMPRESSION: 1. Normal pelvic ultrasound with IUD in expected position within the endometrial canal. Reviewed, dictated and finalized at location A. IMPRESSION: 1. Normal pelvic ultrasound with IUD in expected position within the endometria l canal.
== END 2021-02-17 09:50 | disposition home or self-care (01) ==
PROVIDERS: Visit Provider Nurse Practitioner
DX: Z30.431 Encounter for routine checking of intrauterine contraceptive device (principal)
CPT/HCPCS: 76830; 76856

== ENCOUNTER 2023-09-02 18:12 | Emergency (ER) | payer OTHER, SELFPAY ==
[2023-09-02] VITALS (17 sets, daily range): BP systolic 134–149; BP diastolic 68–98; PULSE 80–122; RESP 13–36; TEMP 37; O2SAT 96–100
--- NOTE | ~2023-09-02 | XR_ITS ---
EXAMINATION: XR chest 2V Exam Date/Time: 09/02/2023 19:05 [employer] HISTORY: cough, sob X 3 WEEKS Comparison: 11/13/2020. RESULT: Lines, tubes, and devices: Cholecystectomy clips. Lungs and pleura: Clear. Cardiomediastinal silhouette: Stable. Other: No acute osseous or upper abdominal finding. IMPRESSION: No acute cardiopulmonary process. Reviewed, dictated and finalized at location K. [employer] MA[employer]
--- NOTE | 2023-09-02 18:17 | ECG_ITS ---
Measurements Intervals [place] Rate: 115 P: 59 ND: 138 QRS: 72 QRSD: 95 T: -1 QT: 271 QTc: 375 Interpretive Statements SINUS TACHYCARDIA NONSPECIFIC T-WAVE ABNORMALITY- ANTEROLAT/INF LEADS BASELINE WANDER- V1 ABNORMAL ECG COMPARED TO ECG 11/13/2020 20:32:05 SINUS TACHYCARDIA NOW PRESENT T-WAVE ABNORMALITY NOW PRESENT Electronically Signed On 09-03-2023 6:41:07 LICENSED SURVEYOR by Cristi Leo D.O.
[2023-09-02 19:15] LABS: Basophils Absolute Auto 0.1 K/mm3 (0.0-0.1); Basophils Percent Auto 0.7 % (0.2-1.2); Eosinophils Percent Auto 7.8 % (0-4.4); Hematocrit 45.3 % (37.0-47.0); Hemoglobin 15.4 g/dL (12.0-15.0); Immature Granulocyte Absolute 0.03 K/mm3 (0.00-0.031); Immature Granulocyte Percent A 0.2 % (0-0.5); Lymphocytes Percent Auto 17.3 % (18.3-44.2); Mean Corpuscular Hemoglobin 27.9 pg (26-34); Mean Corpuscular Volume 82.2 fl (80-100); Mean Platelet Volume 11.3 fl (7.4-10.4); Monocytes Absolute Auto 0.9 K/mm3 (0.1-0.6); Monocytes Percent Auto 6.6 % (2.6-8.5); Neutrophils Percent Auto 67.4 % (45.5-73.1); Platelet Count Result 341 k/mm3 (150-375); Red Blood Count 5.51 M/mm3 (4.2-5.4); Red Cell Distribution Width 12.5 % (11.5-14.5); White Blood Count 13.3 K/mm3 (4.5-10.0)
[2023-09-02 19:25] LABS: Alanine Aminotransferase 18 U/L (6-35); Albumin Level 4.9 g/dL (3.5-5.1); Alkaline Phosphatase 85 U/L (38-126); Anion Gap 13 mmol/L (8-16); Aspartate Amino Transferase 33 U/L (14-36); Bilirubin,Total 0.6 mg/dL (0.2-1.3); Blood Urea Nitrogen 10 mg/dL (7-17); Calcium 9.8 mg/dL (8.4-10.2); Carbon Dioxide 22 mmol/L (22-30); Chloride 106 mmol/L (98-107); Estimated CRCL calculation 153 ml/min; Estimated Glomerular Filt Rate > 60; Glucose 98 mg/dL (65-110); Potassium 3.8 mmol/L (3.4-5.0); Sodium 141 mmol/L (137-145)
[2023-09-02 19:52] LABS: Influenza A QL RT-PCR Negative (Negative); Influenza B QL RT-PCR Negative (Negative); SARS-CoV-2 RNA PCR Negative (Negative)
[2023-09-02] MEDS: SODIUM CHLORIDE 0.9% IV 1,000 ML 999 ML IV CONT (20:59)
[2023-09-02] MEDS: IPRATROPIUM BR 0.02% INH SOLN 0.5 MG/2.5 ML VIAL INHALATION (21:24)
[2023-09-02] MEDS: ALBUTEROL SULFATE NEB 2.5 MG/3 ML INH INHALATION (21:24)
--- NOTE | 2023-09-02 21:28 | ED.URI ---
HPI - URI/Sore Throat General Chief Complaint: Upper Respiratory Infection Stated Complaint: sob Time Seen by Provider: 09/02/23 20:31 History of Present Illness HPI Narrative: Patient is a 23-year-old female who presents to the emergency department this afternoon complaining of an upper respiratory infection. Patient states that her symptoms started approximately 3 weeks ago and have been progressively getting worse. She denies any exposure to sick contacts or COVID. Patient denies any fevers at home, she states that she just has this cough that will not go away. Patient denies any chest pain, shortness of breath, nausea, vomiting, abdominal pain, dysuria, hematuria, constipation, diarrhea, melena, hematochezia, fevers or chills. She also denies any headaches, dizziness, lightheadedness, blurry visions, focal weakness, numbness and or tingling. There are no other modifying, alleviating, or precipitating factors at this time. Related Data Allergies Allergy/AdvReac Type Severity Reaction Status Date / Time No Known Allergies Allergy Verified 09/02/23 20:31 Review of Systems Review of Systems: All systems are reviewed and are negative unless stated otherwise in the HPI. [facility] Past Medical History Medical History Cystic acne Hx of migraines (normal spontaneous vaginal delivery) Obese Surgical History Surgical History History of laparoscopic cholecystectomy 11/19/20 No pertinent past surgical history Family History Family History Father , Related to her stroke Cerebrovascular accident Hypertension Diabetes mellitus Mother Alive and well Sibling Gallbladder disease Social History Social History Social History: The patient lives at home with her boyfriend and one month old daughter. She is currently . 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 HEENT: PERRL, no rhinorrhea, no post nasal drip, oropharynx clear. Neck: Trachea midline, no JVD, no lymphadenopathy. Cardiovascular: Regular rate and rhythm, no murmurs, rubs or gallops, no peripheral edema. Respiratory: Faint wheezing bilaterally, no tachypnea, no rhonchi, no rubs, no respiratory distress. Abdomen: Soft, nontender, nondistended, no rebound, no guarding, no peritoneal signs. Musculoskeletal: No joint swelling or deformity, normal muscle tone. Skin: No rashes or petechia, no signs of infection. Psychiatric: Alert and oriented, normal behavior and judgment for situation. Neurological: Alert and oriented to person, place, and time. Follows all commands. No focal deficits, speech is clear and fluent. Course Vital Signs Vital signs: Vital Signs Temperature 98.6 F 09/02/23 18:13 Pulse Rate 122 H 09/02/23 18:13 Respiratory Rate 32 H 09/02/23 18:13 Blood Pressure 145/81 H 09/02/23 18:13 Pulse Oximetry 96 09/02/23 18:13 Oxygen Delivery Room Air 09/02/23 18:13 Temperature 98.6 F 09/02/23 18:13 Pulse Rate 92 09/02/23 22:04 Respiratory Rate 29 H 09/02/23 22:04 Blood Pressure 145/71 H 09/02/23 22:03 Pulse Oximetry 97 09/02/23 22:04 Oxygen Delivery Room Air 09/02/23 18:13 MDM - URI/Sore Throat [facility] Narrative Medical de
== END 2023-09-02 22:14 | disposition home or self-care (01) ==
PROVIDERS: Emergency Medicine; Emergency Provider Emergency Medicine
DX: J06.9 Acute upper respiratory infection, unspecified (principal); R94.31 Abnormal electrocardiogram [ECG] [EKG]
CPT/HCPCS: 36415; 71046; 80053; 85025; 87636; 93005; 94640; 96360; 99284; J7030

== ENCOUNTER 2025-06-21 16:13 | Observation (INO) | payer OTHER, SELFPAY ==
[2025-06-21 16:34] VITALS: BP 136/77; PULSE 95
[2025-06-21 16:59] LABS: Add Urine Microscopic? YES; Appearance Urine Clear (Clear); Glucose Urine UA Negative (Negative); Leukocyte Esterase Ur 3+ LEU/UL (Negative); Nitrate Urine Negative (Negative); Non Pathogenic Casts 0-2; Specific Grav Ur 1.008 (1.001-1.035)
[2025-06-21 17:00] VITALS: BP 127/80; PULSE 94
[2025-06-21] MEDS: ONDANSETRON HCL ODT 4 MG TABLET PO (17:24)
[2025-06-21 17:30] VITALS: BP 131/67; PULSE 89
[2025-06-21 18:01] VITALS: BP 64/47; PULSE 80
[2025-06-21 18:12] VITALS: BP 107/75; PULSE 82
--- NOTE | 2025-06-21 18:15 | OBADM ---
This patient, Marium Hernandez, admitted to the OB room OB Post 116 for observation. Patient/family oriented to hospital policies and general routines including ID bracelet, bed and alarms, visiting hours, pain management, procedures, bathroom and other care routines, personal items, smoking policy, room service/diet, and visiting hours. Patient/Family are encouraged to report perceived risks to care and to ask questions if they do not understand what they are told or what they should do.
--- NOTE | 2025-06-23 13:17 | P.PNOB_ITS ---
OB - Triage/Final Diagnosis Visit Information Comments/Additional reasons for admission: I have assessed the risk for this patient, Marium Hernandez, and determined that she would benefit from observation care. Evaluation Laboratory results: Laboratory Tests 06/21/25 16:45 Urine Color Yellow Urine Appearance Clear Urine pH 7.5 Ur Specific [place] 1.008 Urine Protein Negative Urine Glucose (UA) Negative Urine Ketones 1+ H Ur Blood (Man) Negative Urine Nitrate Negative Urine Bilirubin Negative Urine Urobilinogen 0.2 Leukocyte Esterase Rfl 3+ H Urine RBC 0-2 Urine WBC 11-20 H Ur Squamous Epith Cells Occasional Urine Bacteria Rare Urine Casts 0-2 Final Diagnosis (1) Nausea and vomiting during : Code(s): O21.9 - Vomiting of , unspecified Status: Acute
== END 2025-06-21 18:21 ==
LOC: ANHOBPP 16:23
PROVIDERS: Admitting Provider Obstetrics & Gynecology; Visit Provider Obstetrics & Gynecology
DX: O21.2 Late vomiting of pregnancy (principal); Z3A.28 28 weeks gestation of pregnancy; R82.90 Unspecified abnormal findings in urine
CPT/HCPCS: 81001; 87086; A9270; G0378; G0379

== ENCOUNTER 2025-08-26 20:20 | Observation (INO) | payer OTHER, SELFPAY ==
--- OUTSIDE RECORDS SUMMARY | 2025-08-26 23:21 | XMS_ITS | Clinical Summary ---
Author Organization [facility] Address [address] [place] [address] Care Team Providers Care Head Baggage Porter Name Role Phone Rusty Fine TAKER OUT-BUSINESS PARTNER Primary Care Pro vider Source Comments [facility],non-owned Affiliates and Associated Physician Practices is amultiple site organization consisting of ambulatory clinics and hospital sitesin [place], [place], [place] and [place]. This disclosure is being madepursuant to the Care Everywhere program and may not contain all information available regarding this patient. Last updated 18.[facility] Allergies No known active allergies Medications * Be aware that medications may not be up to date on this document. Alwaysverify current medications with the patient. doxycycline (VIBRAMYCIN) 100 MG tablet Take 100 mg by mouth 6 Active clindamycin (CLEOCIN T) 1 % solution APPLY SOLUTION TOPICALLY TO THE FACE, BACK, AND ARMS IN THE MORNING 6 Active tretinoin (RETIN-A) 0.05 % cream APPLY PEA SIZED AMOUNT TO ENTIRE FACE, WELL CHEST/BACK AT NIGHT 6 Active omeprazole (PriLOSEC) 20 MG capsule Take 1 (one) capsule by mouth daily before breakfast Active Vit-DSS-Fe Fum-FA ( vitamin with iron) tablet Take 1 (one) tablet by mouth once daily Active valACYclovir (Valtrex) 500 MG tablet Take by mouth 2 times daily Active Active Problems Problem Noted Date Diagnosed Date Chronic pain of right ankle 09/08/2016 Estimated Date of Delivery Comme nts Yes 09/10/2025 Based on Ultraso und Encounters Date Type Department Care Team Description 08/08/2025 10:34 AM CDT - 08/08/2025 11:59 PM CDT Hospital Encounter [facility] [address] [place] [id number] Adriel Foley MD Discharge Disposition: Home or Self Care 08/08/2025 10:30 AM CDT - 08/08/2025 10:33 AM CDT Hospital Encounter [facility] [address] [place] [id number] Adriel Foley MD Discharge Disposition: Home or Self Care from Last 3 Months Family History Medical History Relation Name Comments CVA Father Diabetes - Type 2 Father Hypertension Father Relation Name Status Comments Brother Alive Father Mother Alive Sister 1 Alive Sister 2 Alive Social History Tobacco Use Types Packs/Day Years Used Date Smoking Tobacco: Never Smokeless Tobacco: Never Tobacco Cessation:Counseling Given: Not Answered Alcohol Use Standard Drinks/Week Comments Not Currently 0 (1 standard drink = 0.6 oz pur e alcohol) Estimated Date of Delivery Comme nts Yes 09/10/2025 Based on Ultraso und Sex and Gender Information Value Date Recorded Sex Assigned at Not on file Legal Sex Female 11:53 AM CDT Gender Identity Not on file Sexual Orientation Not on file Last Filed Vital Signs Vital Sign Reading Time Taken Comments Blood Pressure 130/86 08/08/2025 11:27 AM CDT Pulse 98 08/08/2025 11:27 AM CDT Temperature - - Respiratory Rate - - Oxygen Saturation - - Inhaled Oxygen Concentration - - Weight 93 kg (205 lb) 08/08/2025 11:27 AM CDT Height 160 cm (5' 3) 08/08/2025 11:27 AM CDT Body Mass Index 36.31 08/08/2025 11:27 AM CDT Plan of Treatment Health Maintenance Due Date Last Done Comments HPV VACCINE (1 - 3-dose series) 2014 HEPATITIS C SCREENING 06/18/2017 DTAP/TDAP/TD VACCINES (1 - Tdap) 2018 HEPATITIS B VACCINE (1 of 3 - 19+ 3-dose series) 2018 PAP SMEAR 2020 DEPRESSION SCREENING 10/19/2024 OB-ONE HOUR GLUCOSE 06/04/2025 OB-TDAP CURRENT 06/11/2025 09/18/2020, OB-RHOGAM INJECTION 06/18/2025 COVID-19 VACCINE ( season) 2025 11/15/2021 INFLUENZA VACCINE (#1) 2025 , 11/15/2021, 07/06/2019, Additional history exists OB-GROUP B STREP SCREEN 08/06/2025 ZOSTER VACCINE (1 of 2) 2049 HIV SCREENING Completed 2025, 02/21/2025 HIB VACCINE Aged Out No longer eligi ble based on patient's age to complete this topic MENINGOCOCCAL (Group B) VACCINE SHARED DECISION-MAKING Aged Out No longer eligible based on patient's age to complete this topic MENINGOCOCCAL GROUPS A/C/Y/W VACCINE Aged Out No longer eligible based on patient's age to complete this topic PNEUMOCOCCAL VACCINE Aged Out No long er eligible based on patient's age to complete this topic Respiratory Syncytial Virus (RSV) Vaccine Pt: or over 60 yrs (No Doses Required) Completed Procedures Procedure Name Priority Date/Time Associated Diagnosis Comments SONOGRAM - COMPLETE Routine 08/08/2025 1 0:50 AM CDT Velamentous insertion of umbilical cord, antepartum (HCC) SGA (small for gestational age) (HCC) Obesity in (HCC) 35 weeks gestation of (HCC) from Last 3 Months Results * Sonogram - Complete (08/08/2025 10:50 AM CDT) Linked Results Indication ======== Placenta disorder, unspecified Bilobed Placenta Velamentous cord insertion History ====== OB History 5. Para 1 [id number] Lab Tests Test Date Result NIPT Low risk, Male Maternal Assessment Physical Exam Height 160 cm, 5 ft 3 in. Weight 93 kg, 205 lb. Initial weight 90 kg, 199 lb. BMI 36.31 kg/m . Initial BMI 35.25 kg/m . Weight gain 3 kg, 6 lb Method ====== Transabdominal ultrasound. View: Sufficient ========= Byrne . Number of fetuses: 1 Dating ====== Date Details Gest. age SARA Stated SARA 35 w + 2 d 09/10/2025 Previous U/S 01/31/2025 GA, GA 8 w + 2 d 35 w + 2 d 09/10/2025 U/S 08/08/2025 based upon AC, BPD, Femur, HC 35 w + 1 d 09/11/2025 Assigned dating based on stated SARA, selected on 08/08/2025 35 w + 2 d 09/10/2025 General Evaluation Cardiac activity present. FHR 142 bpm. Presentation: cephalic Placenta: Placental site: anterior. Accessory/succentur iate lobe. posterior Umbilical cord: Insertion site: velamentous insertion Amniotic fluid: Amount of AF: normal. MVP 3.6 cm. DORON 11.2 cm. Q1 3.0 cm, Q2 1.2 cm, Q3 3.6 cm, Q4 3.4 cm Biometry BPD 88.2 mm 35w 5d 65% Hadlock HC 325.3 mm 36w 6d 56% Hadlock AC 298.0 mm 33w 5d 17% Hadlock Femur 66.3 mm 34w 1d 16% Hadlock Humerus 59.9 mm 34w 5d 55% Debbie HC / AC 1.09 -/- Hadlock Weight Calculation: EFW 2,413 g 24% Hadlock EFW (lb,oz) 5 lb 5 oz EFW by Hadlock (DLE-EV-NV-FL) appropriate Growth Overview Exam date GA BPD (mm) HC (mm) AC (mm) FL (mm) HL (mm) EFW (g) 08/08/2025 35w 2d 88.2 65% 325.3 56% 298 17% 66.3 16% 59.9 55% 2413 24% Anatomy The following structures appear normal: Head / Neck Cranium. Choroid plexus. Midline falx. Cavum septi pellucidi. Thalami. Face Lips. Profile. Nose. Nasal bone. Heart / Thorax 4-chamber view. RVOT view. LVOT view. 3-vessel view. 6-tbbsqu-boqcfmk view. Situs. Interventricular septum. Great vessels. Right lung. Left lung. Diaphragm. Abdomen Stomach. Kidneys. Bladder. Bowel. Extremities / Skeleton Legs. The following structures could not be adequately visualized: Head / Neck Lateral ventricles. Cerebellum. Cisterna magna. Face Orbits. Heart / Thorax Aortic arch view. Bicaval view. Ductal arch view. Abdomen Cord insertion. Genitals. Spine Cervical spine. Thoracic spine. Lumbar spine. Extremities / Skeleton Arms. Hands. Feet. Maternal Structures Right Ovary Not visualized Appearance: Adnexa appears normal Left Ovary Not visualized Appearance: Adnexa appears normal Impression ========= * Byrne IUP at 35 weeks of gestation by stated EDC from early U/S * Referred to [facility] for obstetrical U/S & request for consult secondary to: Velamentous placental cord insertion, 2 placental lobes, EFW 13th% at 32 week scan * Today's ultrasound (U/S) findings: Living byrne intrauterine fetus growth is in the normal range Amniotic fluid volume (AFV) appears normal Placenta is bilobed & clear of the internal cervical os Placental cord insertion appears velamentous between lobes & not near the cervix Comprehensive anatomic survey appears normal, but is suboptimal d/t EGA PAST MEDICAL & OBSTETRICAL HISTORY * Medications: vitamins & omeprazole & starting acyclovir * Past Medical History: No CHTN, no DM, no thyroidopathy, no asthma, no VTE, no SLE Pre- obesity Class II, BMI = 35.3 * Past Surgical History: cholecystectomy * Past Obstetrical History: SAB in early T1 x3, then at 39 wk 2778 gm G5: Current cf-DNA was low-risk & limited carrier screen negative Had mildly elevated BP at 24 weeks, normal or upper-normal since 1-hr GCT 157 mg/dL, 3-hr-test vomited, several weeks of CBGs reportedly WNL * Social History: Denies ethanol, tobacco, drugs * Physical Examination: BP = 130/86 mmHg, Pulse = 98 bpm, Weight = 205 pounds * Lab urine test strip today: glucose -, ketones -, protein -, blood -, leukocytes - COUNSELING & RECOMMENDATIONS * Velamentous cord insertion (VCI) VCI defined as membranous umbilical vessels at placental insertion site VCI is prone to compression & rupture due to lack of Dio's jelly VCI incidence & placentation: Singletons ~ 1%, DA/DC twins ~ 8%, DA/MC twins ~ 35% VCI incidence & IVF: Spontaneous conception 1.6%, Conventional IVF 4.8%, IVF+ICSI 9.4% Increased obstetrical risks of VCI include: growth restriction (FGR), delivery Intrapartum heart rate (FHR) abnormalities, Retained placenta surveillance (e.g. NST) recommendations for isolated VCI: 2020 ACOG CO-828 start weekly @ 36w0d 2021 [facility] guidelines: insufficient data to routinely recommend References cited in this section include: The 2020 ACOG Committee Opinion # 828 ... Surveillance Joe et al. ...Impact of Assisted Reproductive Technology... Medicina 2022; PMID: [id number] * With uncomplicated VCI (i.e. no FGR, no FHR decelerations, etc), I generally advise: Monitor growth by U/S every 4-6 weeks in 3rd-trimester Start 1x-weekly NST+BPP at 36w0d Delivery during the 39th week of gestation Vaginal delivery can be attempted, with careful intrapartum monitoring of FHR pattern Careful inspection of placenta & membranes to ensure complete delivery COMMENTS * Thank you very much for requesting [facility] participation in her obstetrical care * Findings were explained & questions were addressed & precautions were given to patient * U/S does not detect all structural, genetic & functional snjxyhgk-[id number] ental abnormalities * Telemedicine services were performed for this U/S examination & MFM consultation Patient's identity was confirmed at the [facility] office Appropriateness of the telehealth consult was confirmed Informed consent for telemedicine services was obtained & scanned into EMR Modality was secure interactive audio-video session using [employer] Project Patient site location was [facility] & nurse presenter was Radha Calvillo Distant site provider was Adriel Foley MD & location was home office New consult = 30 minutes total, including record review & counseling & coordination of care Follow-up ======== Please see above Coding ====== Diagnoses O43.123: Velamentous insertion of umbilical cord O43.93: Unspecified placental disorder Procedures 03363: US Preg Uterus Detailed . [facility] [place] PACS Anatomical Region Laterality Modality Other 08/08/2025 10:5 0 AM CDT R Shamir Srivastava MD [facility] ORDERABLES Edited Result - Final from Last 3 Months Insurance [facility] Care Teams Head Baggage Porter Relationship Specialty Start Date End Date Rusty Fine APRN-CNP [address] [id number] PCP - General Nurse Practitioner 08/21/16
[2025-08-26 23:30] VITALS: BMI 35.5
--- NOTE | 2025-08-26 23:31 | OBADM ---
This patient, Marium Hernandez, admitted to the OB room Labor/Delivery/Recovery 108 for observation. Patient/family oriented to hospital policies and general routines including ID bracelet, bed and alarms, visiting hours, pain management, procedures, bathroom and other care routines, personal items, smoking policy, room service/diet, and visiting hours. Patient/Family are encouraged to report perceived risks to care and to ask questions if they do not understand what they are told or what they should do.
--- NOTE | 2025-08-29 11:01 | PM.OBTRLD ---
OB - Triage/Final Diagnosis Visit Information Date of evaluation: 08/29/25 Reason for evaluation: threatened labor Comments/Additional reasons for admission: I have assessed the risk for this patient, Marium Hernandez, and determined that she would benefit from observation care.
== END 2025-08-26 23:45 | disposition home or self-care (01) ==
PROVIDERS: Admitting Provider Obstetrics & Gynecology; Visit Provider Obstetrics & Gynecology
DX: O47.1 False labor at or after 37 completed weeks of gestation (principal); Z3A.37 37 weeks gestation of pregnancy
CPT/HCPCS: G0378; G0379

== ENCOUNTER 2025-08-29 15:22 | Outpatient (RCR) | payer OTHER, SELFPAY ==
[2025-08-11 11:04] VITALS: PULSE 101
[2025-08-23 13:40] VITALS: BP 127/80; PULSE 98
--- NOTE | ~2025-08-29 | US_ITS ---
EXAMINATION: US OB BPP wo non-stress DATE: 08/11/2025 11:23 INDICATION: Intrauterine growth retardation during third trimester of TECHNIQUE: Real-time pelvic ultrasound was performed. The interpreting radiologist was not present for the study. COMPARISON: None. FINDINGS: There is a single living fetus in vertex presentation. The placenta is anterior. heart rate is 134 beats per minute (bpm). Biophysical profile performed by the technologist: breathing (30 sec sustained breathing in 30 minutes): 2 out of 2 movement (3 gross body movements in 30 minutes): 2 out of 2 tone (one episode of ntzcsow-gukqdfnnc-keqcpfy limb movement): 2 out of 2 Amniotic fluid pocket (2 cm): 2 out of 2 Total score: 8 out of 8 IMPRESSION: 1. Single living fetus in vertex presentation with heart rate of 134 bpm. 2. Biophysical profile 8 out of 8. Reviewed, dictated and finalized at location A.
--- NOTE | ~2025-08-29 | US_ITS ---
EXAMINATION: US OB BPP wo non-stress DATE: 08/29/2025 16:49 INDICATION: Third trimester . Small for gestational age. TECHNIQUE: Real-time pelvic ultrasound was performed. The interpreting radiologist was not present for the study. COMPARISON: 10/23/2024 and 08/11/2025 FINDINGS: There is a single living fetus in vertex presentation. Again seen is an anterior placenta. There also appears to be a separate right-sided placenta without discrete intervening communication which was not imaged on the prior studies. heart rate is 134 beats per minute (bpm). Biophysical profile performed by the technologist: breathing (30 sec sustained breathing in 30 minutes): 0 out of 2 movement (3 gross body movements in 30 minutes): 2 out of 2 tone (one episode of xtfyuyw-xrdvlgvjy-lgeryof limb movement): 2 out of 2 Amniotic fluid pocket (2 cm): 2 out of 2 Total score: 6 out of 8 IMPRESSION: 1. Single living fetus in vertex presentation with heart rate of 134 bpm. 2. Biophysical profile 6 out of 8 with no points given for 30 seconds of sustained breathing over the course of 30 minutes observation. 3. Unchanged anterior placenta with what appears to be second right-sided placenta which was not visualized on the prior imaging. Reviewed, dictated and finalized at location A. ING MACHINE BACK TENDER IMPRESSION: 1. Single living fetus in vertex presentation with heart rate of 134 bpm. 2. Biophysical profile 6 out of 8 with no points given for 30 seconds of susta ined breathing over the course of 30 minutes observation. 3. Unchanged anterior placenta with what appears to be second right-sided place nta which was not visualized on the prior imaging.
--- NOTE | ~2025-08-29 | US_ITS ---
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 TECHNIQUE: Real-time transabdominal obstetric ultrasound. FINDINGS: 08/11/2025 There is a single living fetus in vertex presentation. The placenta is anterior without placenta previa. cardiac activity and movement is noted with a heart rate of 125 beats per minute. Biophysical profile: breathin of 2 movement: 2 of 2 tone: 2 of 2 Amniotic flud pocket: 2 of 2 Total score: 8 of 8 IMPRESSION: 1. Single living intrauterine in vertex presentation. 2: Total biophysical profile score of 8/8. Reviewed, dictated and finalized at location O. PLANT ATTENDANT
== END 2025-09-05 07:16 | disposition other institution (70) ==
LOC: ANHOBOP 15:22
PROVIDERS: Visit Provider Obstetrics & Gynecology
DX: O99.213 Obesity complicating pregnancy, third trimester (principal); O36.5930 Maternal care for other known or suspected poor fetal growth, third trimester, not applicable or unspecified; Z3A.35 35 weeks gestation of pregnancy; Z3A.37 37 weeks gestation of pregnancy; Z3A.38 38 weeks gestation of pregnancy
CPT/HCPCS: 59025; 76819

== ENCOUNTER 2025-09-04 08:25 | Inpatient (IN) | payer OTHER, SELFPAY ==
[2025-09-04] VITALS (162 sets, daily range): BP systolic 103–156; BP diastolic 47–123; PULSE 64–181; RESP 16; TEMP 36.6–36.8; O2SAT 94–100; BMI 36.3
--- NOTE | 2025-09-04 08:25 | LDADM ---
This patient, Marium Hernandez, was admitted to Labor/Delivery/Recovery 106 on 09/04/25 at 08:25. Plans for labor, pain management and were discussed with patient. Patient/family oriented to hospital policies and general routines including ID bracelet, bed and alarms, visiting hours, pain management, procedures, bathroom and other care routines, personal items, smoking policy, room service/diet and guest tray routines, security routines, and visiting hours. Patient/Family are encouraged to report perceived risks to care and to ask questions if they do not understand what they are told or what they should do. See OBIX for further documentation.
[2025-09-04 09:36] LABS: OBXCEM ROM Plus Positive (Negative)
[2025-09-04 09:48] LABS: Hematocrit 34.2 % (37.0-47.0); Hemoglobin 11.4 g/dL (12.0-15.0); Immature Granulocyte Percent A 0.5 % (0-0.5); Lymphocytes Absolute Auto 1.09 K/mm3 (0.9-3.2); Mean Corpuscular HGB Conc 33.3 g/dl (32-36); Mean Corpuscular Hemoglobin 28.1 pg (26-34); Mean Corpuscular Volume 84.2 fl (80-100); Nucleated Red Blood Cells Absolute Auto 0.000 K/mm3 (0.0-0.012); Nucleated Red Blood Cells Perc 0.0 % (0.0-0.2); Platelet Count Result 215 k/mm3 (150-375); Red Blood Count 4.06 M/mm3 (4.2-5.4); White Blood Count 10.1 K/mm3 (4.5-10.0)
[2025-09-04] MEDS: LACTATED RINGERS 1,000 ML 125 ML IV CONT ×2 (09:59→15:03)
[2025-09-04] MEDS: AMPICILLIN SODIUM 2 GM in SODIUM CHLORIDE 0.9% IV 100 ML 200 ML IVPB (09:59)
[2025-09-04] MEDS: OXYTOCIN 30 UNITS/NS 500 ML 30 UNITS/500 ML BAG IV CONT (09:59)
[2025-09-04 10:24] LABS: Syphilis IgG/IgM Antibody Non-Reactive (Nonreactive)
[2025-09-04] MEDS: AMPICILLIN SODIUM 1 GM in SODIUM CHLORIDE 0.9% IV 50 ML 100 ML IVPB ×2 (13:51→18:10)
--- NOTE | 2025-09-04 14:34 | P.PNAN_ITS ---
Anes - Initial Pre Proc Eval Procedure: labor epidural Date/Time: 09/04/25 14:34 Surgeon: Silviano Mittal MD Pre Op Diagnosis: labor pain Pre Op Diagnosis: iol Patient Data Age: 25 Gender: F Height: 1.6 m Weight: 93 kg Last Vital Signs Temp 36.6 C 09/04/25 14:00 Pulse 76 09/04/25 14:31 BP 128/84 09/04/25 14:31 O2 Del Method Room Air 09/04/25 09:32 Allergies Allergy/AdvReac Type Severity Reaction Status Date / Time No Known Allergies Allergy Verified 09/04/25 09:18 Home Medications ?Medication ?Instructions ?Recorded ?Confirmed ?Type omeprazole 20 mg capsule,delayed 20 mg PO DAILY 09/04/25 History release vit no.95-ferrous 1 tablet PO DAILY 08/25/25 09/04/25 History fumarate 28 mg-folic acid 800 mcg tablet () valacyclovir 500 mg tablet 500 mg PO Q12H 08/25/25 History Laboratory Tests 09/04/25 09/04/25 08:45 09:13 WBC 10.1 H K/mm3 (4.5-10.0) RBC 4.06 L M/mm3 (4.2-5.4) Hgb 11.4 L D g/dL (12.0-15.0) Hct 34.2 L % (37.0-47.0) MCV 84.2 fl (80-100) MCH 28.1 pg (26-34) MCHC 33.3 g/dl (32-36) RDW 13.8 % (11.5-14.5) Plt Count 215 k/mm3 (150-375) MPV 11.0 H fl (7.4-10.4) Immature Gran % (Auto) 0.5 % (0-0.5) Neut % (Auto) 79.5 H % (45.5-73.1) Lymph % (Auto) 10.8 L % (18.3-44.2) [place] % (Auto) 6.9 % (2.6-8.5) Eos % (Auto) 2.1 % (0-4.4) Baso % (Auto) 0.2 % (0.2-1.2) Lymph # (Auto) 1.09 K/mm3 (0.9-3.2) [place] # (Auto) 0.7 H K/mm3 (0.1-0.6) Eos # (Auto) 0.2 K/mm3 (0-0.3) Baso # (Auto) 0.0 K/mm3 (0.0-0.1) Abs Immat Gran (auto) 0.05 H K/mm3 (0.00-0.031) Absolute Neuts (auto) 8.0 H K/mm3 (1.3-6.7) Absolute Nucleated RBC 0.000 K/mm3 (0.0-0.012) Nucleated RBC % 0.0 % (0.0-0.2) Membranes Rupture Rom plus positive (Negative) Syphilis IgG/IgM Ab Non-reactive (Nonreactive) Blood Type O Positive Antibody Screen Negative Patient hx anesthesia problems: none Family hx anesthesia problems: none Results Review: All pre-operative results and documents have been reviewed as part of the pre- operative evaluation. [facility] Past Medical History Medical History (normal spontaneous vaginal delivery) Hx of migraines Obese Cystic acne Surgical History Surgical History History of laparoscopic cholecystectomy 11/19/20 No pertinent past surgical history Family History Family History Father , Related to her stroke Cerebrovascular accident Hypertension Diabetes mellitus Mother Alive and well Sibling Gallbladder disease Social History Social History Social History: The patient lives at home with her boyfriend and one month old daughter. She is currently . 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, 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 Gender identity (if verbalized by the patient): Female Sexual Orientation (if Verbalized by the Patient): Straight or Heterosexual Spiritual care concerns: No Anes - Eval Final PreProcedure Day of Procedure 09/04/25 14:34 Patient weight: obese Heart: regular rate and rhythm Lungs: clear to auscultation and normal air movement Airway: Mallampati scale class III Neurological: alert and oriented ASA classification: III Emergent: no Anesthetic plan: proceed Anesthesia type and monitoring: regional epidural and standard monitoring Results Review: All pre-operative results and documents have been reviewed as part of the pre-operative evaluation. Informed Consent: The patient's anesthetic plan and its attendant risks and benefits were discussed with the patient/family/POA. Questions were solicited and answers provided to the satisfaction of the patient/family/POA.
[2025-09-04] MEDS: ONDANSETRON INJ 4 MG/2 ML VIAL IV PUSH (15:55)
--- NOTE | 2025-09-04 17:08 | WPDOBADMIT ---
Obstetrics - Admit Note Admission Note: record reviewed. No pertinent additions to the history and/or any subsequent changes in the physical findings that are not consistent with the expected course of the were found. Patient admitted after SROM. Pitocin per protocol. IUPC placed for recurrent variable decels. Will start amnioinfusion. Good variability. Anticipate . Additions to the history and/or subsequent changes in the physical findings follow. None.
[2025-09-04] MEDS: SODIUM CHLORIDE 0.9% IV 300 ML 600 ML I-UTERINE (17:18)
--- NOTE | 2025-09-04 20:10 | PM.OBPRVD ---
OB - Vaginal Delivery Note Procedure Delivery date: 09/04/25 Induction method: None Delivery augmentation: Pitocin Route of delivery: Episiotomy description: None Laceration Description: None Specimen: No Quantitative Blood Loss (ml): 200 Anesthesia type: Epidural Disposition: Floor Complications: No immediate complications
[2025-09-04] MEDS: OXYTOCIN 30 UNITS/NS 500 ML 30 UNITS/500 ML BAG 125 UNITS IV CONT (20:38)
--- NOTE | 2025-09-04 22:35 | OBPPTRN ---
Patient transferred to post room #287 via wheelchair. Support person present. Oriented to unit, room, information board, rooming in, admission packet and security measures. Patient verbalizes understanding.
[2025-09-04] MEDS: IBUPROFEN 600 MG TABLET PO (23:03)
[2025-09-05 04:00] VITALS: BP 124/73; PULSE 76; RESP 18; TEMP 36.8; O2SAT 100
[2025-09-05 04:54] LABS: Hematocrit 31.6 % (37.0-47.0); Hemoglobin 10.7 g/dL (12.0-15.0)
[2025-09-05] MEDS: IBUPROFEN 600 MG TABLET PO ×2 (07:44→16:36)
[2025-09-05] MEDS: MULTIVIT/MIN/PREN/FOL AC/IRON TABLET 1 TAB PO (07:44)
[2025-09-05 08:20] VITALS: BP 118/66; PULSE 77; RESP 16; TEMP 36.9; O2SAT 99
--- NOTE | 2025-09-05 10:07 | P.PNOB_ITS ---
OB - PN: Subj Subjective Date/time seen: 09/05/25 10:07 Interval history: PPD#1 s/p Doing well, working on Pain well controlled Tolerating general diet OB - PN: Obj Data Labs 09/05/25 04:06 Labs: Laboratory Results - last 24 hr 09/04/25 09/05/25 09:13 04:06 Hgb 10.7 L Hct 31.6 L Syphilis IgG/IgM Ab Non-reactive Blood Type O Positive Antibody Screen Negative OB - PN A/P Assessment and Plan (1) (spontaneous vaginal delivery): Code(s): O80 - Encounter for full-term uncomplicated delivery Status: Acute Plan day: 1 Plan: routine care Time Spent With Patient Time: Total time spent is greater than 50% in coordination of care (as documented) at patient's floor/unit and/or counseling patient: Review of Systems 2 Review of Systems: All systems reviewed & are unremarkable except as noted in HPI and below Exam 2 Const: General: comfortable and no acute distress O rientation/consciousness: patient oriented x3 Resp: Effort & Inspection: normal respiratory effort
[2025-09-05 12:04] VITALS: BP 123/64; PULSE 87; RESP 16; TEMP 37.2; O2SAT 99
[2025-09-05] MEDS: ACETAMINOPHEN 325 MG TABLET 650 MG PO (12:52)
--- NOTE | 2025-09-05 15:44 | PC.NURSE ---
0840 Consulted with patient to assess needs related to . Discussed with mother her successes, concerns and any questions she has. We reviewed working with the infant, supporting breast, protecting her nipples with an optimal deep latch, good positioning, and good hand washing. Encouraged understanding the benefits of skin to skin, responding to feeding cues, frequencies of feeding 8-12 times in 24 hours (approximately 2-3 hours), duration of feedings, milk production, intake/output feeding sheet and signs of adequate intake encouraging swallowing at the breast. Reviewed positioning and alignment, supporting breast, off-centered (asymmetrical latch) and leading with the chin with big, open, wide gape. Infant latched to the [left] breast in [football] position. Education given to the mother of how to visualize the suckling (with good rocking jaw motion) swallows (dropping of the lower jaw) and how to listen for drinking at the breast (the ka sound). The infant was [able] to maintain latch without discomfort to mother for only a few minutes, mother did hand express and took many drops of colostrum, encouraged skin to skin. Nipple care reviewed with optimal latch, good positioning and using clean hands when touching her breast. Resources used to facilitate learning were used from the [visual handouts/ tool/mom and baby guide]. Mother voiced understanding of the education shared, to call for assistance if the does not latch or if there is discomfort with . Reported to the Primary RN. [employer] RN checked in with mother to see if infant was ready to breastfeed again. was able to latch optimally to the [right] breast in [football] position. Education again given to the mother of how to visualize the suckling (with good rocking jaw motion) swallows (dropping of the lower jaw) and how to listen for drinking at the breast (the ka sound). The infant was [able] to maintain latch without discomfort to mother, she was advised to call for assistance if the infant does not maintain latch or if there is discomfort with . Reported to the Primary RN.
--- NOTE | 2025-09-05 17:04 | PC.NURSE ---
Patient viewed the discharge video Mother & Baby Care, The First Two Weeks. Patient was given the opportunity and encouraged to ask questions. Patient verbalized understanding of information shared and has been given the mother/baby guide for home reference.
--- NOTE | 2025-09-05 18:10 | WPDANLDPN2 ---
Anes-Prog Note L&D Date/Time: 09/05/25 18:10 Comfortable throughout: labor and delivery Neuraxial method: epidural Epidural/Spinal procedure site: clean & non-tender Neuro status: Neuro function grossly intact. Cardiovascular status: normal Respiratory status: normal Airway patency: baseline Mental status: baseline Post-Op hydration status: normal Vital Signs: Last Vital Signs Temp 98.9 F 09/05/25 12:04 Pulse 87 09/05/25 12:04 Resp 16 09/05/25 12:04 BP 123/64 09/05/25 12:04 Pulse Ox 99 09/05/25 12:04 O2 Del Method Room Air 09/04/25 09:32 Pain score (VAS): 0/10 I/O: Intake & Output 09/05/25 09/05/25 09/05/25 07:59 15:59 23:59 Intake Total 480 Balance 480 Post-procedural complaints: none Patient feedback: Patient satisfied with anesthetic care.
[2025-09-05 20:45] VITALS: BP 132/86; PULSE 83; RESP 18; TEMP 37.1; O2SAT 99
[2025-09-06] MEDS: ACETAMINOPHEN 325 MG TABLET 650 MG PO (01:40)
[2025-09-06 07:20] VITALS: BP 118/61; PULSE 75; RESP 16; TEMP 36.9; O2SAT 100
--- NOTE | 2025-09-06 08:20 | P.PNOB_ITS ---
OB - PN: Subj Subjective Date/time seen: 09/06/25 08:20 Interval history: PPD#2 s/p Doing well, working on Pain well controlled Tolerating general diet OB - PN: Obj Data Labs 09/05/25 04:06 OB - PN A/P Plan day: 2 Plan: routine care and discharge home Time Spent With Patient Time: Total time spent is greater than 50% in coordination of care (as documented) at patient's floor/unit and/or counseling patient: Review of Systems 2 Review of Systems: All systems reviewed & are unremarkable except as noted in HPI and below Exam 2 Const: General: cooperative and healthy appearing Chest: Chest palpation & inspection: normal inspection of the chest Resp: Effort & Inspection: normal respiratory effort Cardio: Rate: regular rate
--- NOTE | 2025-09-06 08:21 | PM.OBDSVD ---
DS: Admitting Diagnosis Discharge Date 09/06/25 Admitting Diagnosis labor DS: Discharge Diagnosis Discharge Diagnosis (1) Vaginal delivery: Code(s): O80 - Encounter for full-term uncomplicated delivery Status: Acute OB - DS: Summary OB Procedures : None OB Procedures Intrapartum: Spontaneous Vag Delivery OB Procedures: : None Peripartum Data Laceration Description: None Episiotomy description: None Time Spent with Patient Time attestation: Total time spent providing and/or coordinating discharge services: Discharge Plan Discharge Attending physician on discharge: Silviano Mittal Discharging Clinician: Liliane Crawford Patient Disposition: Home Activity: pelvic rest Diet: regular Patient Instructions: Antibiotic Form Patient Language: Lao Stand Alone Forms: General Discharge Information Follow-up/Referrals: Silviano Mittal MD [Physician, CATALYST OPERATOR CHIEF] - 4 Weeks Discharge Medications: No Action omeprazole 20 mg capsule,delayed release(DR/EC) 20 mg PO DAILY valacyclovir 500 mg tablet 500 mg PO Q12H PNV no.95-ferrous fumarate-FA [] 28 mg iron- 800 mcg tablet 1 tablet PO DAILY Date of admission: 09/04/25 08:25 Primary Care Provider: PHYSICIAN,METAL CUT OFF SAW OPERATOR Admitting Provider: Silviano Mittal Attending physician on admission: Silviano Mittal Condition: Stable
--- NOTE | 2025-09-06 08:57 | PC.NURSE ---
Consulted with mother concerning needs and she shared her ability to independently latch infant optimally without pain. Mother is feeding appropriately for growth of infant and understands stimulating to eat if needed. Infant has had appropriate feedings in the last 24 hours meets the outcomes for weight, output, blood sugar and jaundice at this time. Reinforced understanding of milk production, transition of milk, signs of adequate intake, transition of stool, prevention/relief of engorgement, plugged ducts, mastitis, responsive watching for feeding cues, the different methods of stimulating infant to breastfeed 1-3 hours after the start of the last feeding, community resources, and when to call a provider using the resource of the feeding sheet along with the mom and baby guide. Mother voiced understanding of the information shared, is confident to continue effectively her at home, when to call for assistance, denies any additional assistance or education at this time. [facility] Referral faxed to the [place] office. Reported to the Primary RN.
[2025-09-06] MEDS: PANTOPRAZOLE 40 MG TABLET PO (09:45)
[2025-09-06] MEDS: MULTIVIT/MIN/PREN/FOL AC/IRON TABLET 1 TAB PO (09:45)
[2025-09-07 11:37] VITALS: BP 129/70; PULSE 89; RESP 18; TEMP 36.6; O2SAT 99
== END 2025-09-06 12:57 | disposition home or self-care (01) | DRG 560 ==
LOC: ANHLDR 09:00 → ANHOB2 22:49
PROVIDERS: Obstetrics & Gynecology; Admitting Provider Obstetrics & Gynecology; Visit Provider Obstetrics & Gynecology
DX: O36.8330 Maternal care for abnormalities of the fetal heart rate or rhythm, third trimester, not applicable or unspecified (principal); Z37.0 Single live birth; Z3A.39 39 weeks gestation of pregnancy; O99.824 Streptococcus B carrier state complicating childbirth; O69.81X0 Labor and delivery complicated by cord around neck, without compression, not applicable or unspecified
CPT/HCPCS: 36415; 84112; 85014; 85018; 85025; 86593; 86850; 86900; 86901; A9270; J0290; J2405; J2590; J2795; J7030; J7120